=== PATIENT | female | born 1940 | race African-American/Black ===

== ENCOUNTER 2016-09-22 17:59 | Emergency (ER) | payer MEDICARE, MEDICAID ==
[~2016-09-22] VITALS: Ht 160 cm; Wt 81.0 kg
[~2016-09-22 17:59] MED LIST: AMLO2.5T45 PO; AMOX500T2 PO; CETI-259 PO; CICL15CR13 TP; CYCL30DR OP; CYM20 PO; FLUT16SP15 NS; GABA100C PO; LEVO500T89 PO; LEVO5TAB13 PO; LOSA50TA20 PO; MELA3TAB36 PO; MULT-1146 PO; NOVOLOG SUBCUT; OMEP20CA10 PO; SPIR25TA4 PO; TRESIBA SQ
[2016-09-22] MEDS ORDERED: HYDROCODONE/ACETAMINOPHEN 5/325MG TABLET PO ONE (18:45)
[2016-09-22 20:55] VITALS: BP 140/84
== END 2016-09-22 21:00 | disposition home or self-care (01) ==
LOC: ER 19:11
DX: S92.321A Displaced fracture of second metatarsal bone, right foot, initial encounter for closed fracture (principal); E78.00 Pure hypercholesterolemia, unspecified; K21.9 Gastro-esophageal reflux disease without esophagitis; E11.9 Type 2 diabetes mellitus without complications; Z79.899 Other long term (current) drug therapy; Z98.62 Peripheral vascular angioplasty status; X58.XXXA Exposure to other specified factors, initial encounter; Y93.89 Activity, other specified; Y99.8 Other external cause status; Y92.89 Other specified places as the place of occurrence of the external cause
CPT/HCPCS: 73610; 73630; 99284

== ENCOUNTER 2017-01-04 15:37 | Inpatient (IN) | payer MEDICARE, MEDICAID ==
[~2017-01-04] VITALS: Ht 160 cm; Wt 79.8 kg
[~2017-01-04 15:37] MED LIST changes: +MELA3TAB PO; -MELA3TAB36 PO
[2017-01-04 16:54] LABS: HEMATOCRIT. 35.1 % (36.0-48.0); HEMOGLOBIN. 11.6 g/dL (12.0-16.0); MEAN CORPUSCULAR HEMOGLOBIN 34.1 pg (28.0-32.0); MEAN CORPUSCULAR VOLUME 103.5 fL (81.0-99.0); PLATELET 214 x1000/uL (130-400); RED BLOOD CELL COUNT 3.39 mill/uL (4.2-5.4); RED CELL DISTRIBUTION WIDTH 15.7 % (11.6-14.6)
[2017-01-04 17:04] LABS: CARBON DIOXIDE 21 mEq/L (21-32); CHLORIDE 110 mEq/L (98-107)
[2017-01-04 17:07] LABS: TROPONIN I < 0.02 ng/mL (0.00-0.04)
[2017-01-04 17:48] LABS: PLATELET ESTIMATE NORMAL
[2017-01-04] MEDS ORDERED: AZITHROMYCIN 500 MG in DEXT 5% WATER 250 ML IV ONE (18:30)
[2017-01-04] MEDS ORDERED: CEFTRIAXONE 1 G PREMIX 50 ML IV ONE (18:30)
[2017-01-04] MEDS ORDERED: INSULIN REGULAR (HUMULIN R) 300UNITS/3ML IV ONE (18:45)
[2017-01-04] MEDS ORDERED: ACETAMINOPHEN 325MG TABLET PO PRN (18:45)
[2017-01-04] MEDS ORDERED: IBUPROFEN 600MG TABLET PO PRN (18:45)
[2017-01-04] MEDS ORDERED: DEXTROSE 50% WATER 50ML SYRINGE IV ONE (18:45)
[2017-01-04] MEDS ORDERED: ALBUTEROL (0.083%) 2.5MG/3ML NEB HHN SCH (19:00)
[2017-01-04] MEDS ORDERED: AZITHROMYCIN 500 MG in DEXT 5% WATER 250 ML IV SCH (20:15)
[2017-01-04] MEDS ORDERED: CLONIDINE 0.1MG TABLET PO PRN (21:00)
[2017-01-04] MEDS ORDERED: HYDROCODONE/ACETAMINOPHEN 5/325MG TABLET PO PRN (21:00)
[2017-01-04] MEDS ORDERED: FUROSEMIDE 40MG/4ML VIAL IVP SCH (21:15)
[2017-01-04 21:30] VITALS: BP 128/84
[2017-01-04 21:40] VITALS: BP 128/84
[2017-01-04] MEDS ORDERED: PNEUMOCOCCAL 23-VAL P-SAC VAC 0.5 ML IM ONE (22:30)
[2017-01-04] MEDS ORDERED: DEXL60CA3 PO (22:31)
[2017-01-04] MEDS ORDERED: FURO40TA5 PO (22:31)
[2017-01-04] MEDS ORDERED: FOLI-43 PO (22:31)
[2017-01-04] MEDS ORDERED: DULO30CA2 PO (22:31)
[2017-01-04] MEDS ORDERED: FEBU40TA PO (22:31)
[2017-01-04] MEDS ORDERED: HYDR200T35 PO (22:31)
[2017-01-04] MEDS ORDERED: INSASP SUBCUT (22:37)
[2017-01-04] MEDS ORDERED: ALIR75PE SQ (22:37)
[2017-01-04] MEDS ORDERED: PREG50CA PO (22:37)
[2017-01-04] MEDS ORDERED: INSU200I4 SQ (22:37)
[2017-01-04] MEDS ORDERED: AMLO2.5T45 PO (22:39)
[2017-01-04] MEDS ORDERED: LINA145C PO (22:51)
[2017-01-04] MEDS ORDERED: DEXTROSE 50% WATER 50ML SYRINGE IV PRN (23:00)
[2017-01-04 23:27] LABS: CREATINE KINASE MB FRACTION 3.5 ng/mL (0.5-3.6)
[2017-01-05] VITALS: BP 122/78
[2017-01-05 01:03] LABS: CLARITY URINE CLEAR (CLEAR); COLOR URINE YELLOW (YELLOW); GLUCOSE URINE 1+ (NEGATIVE); KETONES URINE NEGATIVE (NEGATIVE); LEUKOCYTE ESTERASE URINE NEGATIVE (NEGATIVE); NITRITE URINE NEGATIVE (NEGATIVE); OCCULT BLOOD URINE NEGATIVE (NEGATIVE); PH URINE 5.5 (4.5-8.0); PROTEIN URINE NEGATIVE (NEGATIVE); SPECIFIC GRAVITY URINE 1.014 (1.005-1.030); UROBILINOGEN URINE 0.2 E.U./dL (0.2-1.0)
[2017-01-05 04:00] VITALS: BP 122/66
[2017-01-05] MEDS: BLOOD SUGAR DIAGNOSTIC STRIP TEST SCH ×4 (06:17→22:10)
[2017-01-05] MEDS: INSULIN LISPRO 100 UNITS/ML SUBCUT SCH ×4 (06:17→22:21)
[2017-01-05 07:30] LABS: HEMATOCRIT. 34.9 % (36.0-48.0); HEMOGLOBIN. 11.4 g/dL (12.0-16.0); MEAN CORPUSCULAR HEMOGLOBIN 34.1 pg (28.0-32.0); MEAN CORPUSCULAR VOLUME 104.6 fL (81.0-99.0); PLATELET 203 x1000/uL (130-400); RED BLOOD CELL COUNT 3.34 mill/uL (4.2-5.4); RED CELL DISTRIBUTION WIDTH 15.8 % (11.6-14.6)
[2017-01-05 07:35] LABS: TROPONIN I < 0.02 ng/mL (0.00-0.04)
[2017-01-05 08:00] VITALS: BP 121/83
[2017-01-05] MEDS: AZITHROMYCIN 500 MG TABLET PO SCH (12:22)
[2017-01-05 12:25] VITALS: BP 112/70
[2017-01-05 16:00] VITALS: BP 102/69
[2017-01-05 19:22] LABS: PLATELET ESTIMATE NORMAL
[2017-01-05 20:00] VITALS: BP 109/67
[2017-01-05] MEDS: CEFTRIAXONE 1 G PREMIX 50 ML IV SCH (22:11)
[2017-01-06] VITALS: BP 112/59
[2017-01-06 04:00] VITALS: BP 105/62
[2017-01-06] MEDS: BLOOD SUGAR DIAGNOSTIC STRIP TEST SCH ×4 (06:04→20:48)
[2017-01-06] MEDS: INSULIN LISPRO 100 UNITS/ML SUBCUT SCH ×4 (06:08→20:52)
[2017-01-06 06:32] LABS: HEMATOCRIT. 35.1 % (36.0-48.0); HEMOGLOBIN. 11.8 g/dL (12.0-16.0); MEAN CORPUSCULAR HEMOGLOBIN 34.5 pg (28.0-32.0); MEAN CORPUSCULAR VOLUME 103.1 fL (81.0-99.0); MEAN PLATELET VOLUME 8.1 fl (7.4-10.4); PLATELET 210 x1000/uL (130-400); RED CELL DISTRIBUTION WIDTH 15.2 % (11.6-14.6)
[2017-01-06 08:34] VITALS: BP 110/83
[2017-01-06] MEDS: AZITHROMYCIN 500 MG TABLET PO SCH (09:26)
[2017-01-06] MEDS ORDERED: HYDROCODONE/ACETAMINOPHEN 5/325MG TABLET PO PRN (10:00)
[2017-01-06] MEDS: ALBUTEROL (0.083%) 2.5MG/3ML NEB HHN SCH ×4 (10:55→20:29)
[2017-01-06 12:00] VITALS: BP 109/77
[2017-01-06 14:27] LABS: PLATELET ESTIMATE NORMAL
[2017-01-06 16:13] VITALS: BP 128/77
[2017-01-06] MEDS ORDERED: METRONIDAZOLE 500 MG PREMIX 100 ML IV SCH (17:00)
[2017-01-06 20:00] VITALS: BP 116/68
[2017-01-06] MEDS: CEFTRIAXONE 1 G PREMIX 50 ML IV SCH (20:06)
[2017-01-06] MEDS: METRONIDAZOLE 500 MG PREMIX 100 ML IV SCH (20:48)
[2017-01-07] VITALS: BP 94/61
[2017-01-07] MEDS: ALBUTEROL (0.083%) 2.5MG/3ML NEB HHN SCH ×6 (00:42→20:00)
[2017-01-07 04:00] VITALS: BP 124/79
[2017-01-07] MEDS: METRONIDAZOLE 500 MG PREMIX 100 ML IV SCH ×3 (04:29→21:26)
[2017-01-07] MEDS: INSULIN LISPRO 100 UNITS/ML SUBCUT SCH ×4 (06:21→21:29)
[2017-01-07] MEDS: BLOOD SUGAR DIAGNOSTIC STRIP TEST SCH ×4 (06:21→21:27)
[2017-01-07 07:02] LABS: HEMATOCRIT. 34.9 % (36.0-48.0); HEMOGLOBIN. 11.5 g/dL (12.0-16.0); MEAN CORPUSCULAR HEMOGLOBIN 34.2 pg (28.0-32.0); MEAN CORPUSCULAR VOLUME 103.6 fL (81.0-99.0); PLATELET 205 x1000/uL (130-400); RED BLOOD CELL COUNT 3.37 mill/uL (4.2-5.4); RED CELL DISTRIBUTION WIDTH 15.4 % (11.6-14.6)
[2017-01-07 08:00] VITALS: BP 116/68
[2017-01-07] MEDS: AZITHROMYCIN 500 MG TABLET PO SCH (08:38)
[2017-01-07 12:13] VITALS: BP 121/83
[2017-01-07 16:19] VITALS: BP 123/81
[2017-01-07 20:00] VITALS: BP 111/85
[2017-01-07] MEDS: CEFTRIAXONE 1 G PREMIX 50 ML IV SCH (20:14)
[2017-01-07 20:52] LABS: PLATELET ESTIMATE NORMAL
[2017-01-08] VITALS: BP 139/86
[2017-01-08] MEDS: ALBUTEROL (0.083%) 2.5MG/3ML NEB HHN SCH ×4 (00:40→11:50)
[2017-01-08] MEDS: METRONIDAZOLE 500 MG PREMIX 100 ML IV SCH ×2 (03:38→12:28)
[2017-01-08 06:19] VITALS: BP_SYST 108; BP_SYST 112; BP_DIAS 36; BP_DIAS 62
[2017-01-08] MEDS: BLOOD SUGAR DIAGNOSTIC STRIP TEST SCH ×2 (06:33→12:26)
[2017-01-08] MEDS: INSULIN LISPRO 100 UNITS/ML SUBCUT SCH ×2 (06:39→12:27)
[2017-01-08 08:00] VITALS: BP 126/84
[2017-01-08] MEDS: AZITHROMYCIN 500 MG TABLET PO SCH (09:24)
[2017-01-08] MEDS ORDERED: LEVO500T2 PO (13:21)
[2017-01-08] MEDS ORDERED: ALBU6.7H INH (13:21)
[2017-01-08 14:11] VITALS: BP 135/66
== END 2017-01-08 16:09 | disposition home or self-care (01) | DRG 682 ==
LOC: ER 17:17 → 5WST 18:39 → ENRESERV 20:09
PROVIDERS: ADMIT Internal Medicine; ATTEND Internal Medicine
DX: N17.9 Acute kidney failure, unspecified (principal); J18.9 Pneumonia, unspecified organism; E87.5 Hyperkalemia; E11.22 Type 2 diabetes mellitus with diabetic chronic kidney disease; I12.9 Hypertensive chronic kidney disease with stage 1 through stage 4 chronic kidney disease, or unspecified chronic kidney disease; N18.2 Chronic kidney disease, stage 2 (mild); E66.9 Obesity, unspecified; E78.00 Pure hypercholesterolemia, unspecified; E78.5 Hyperlipidemia, unspecified; Z60.2 Problems related to living alone; K21.9 Gastro-esophageal reflux disease without esophagitis; Z79.2 Long term (current) use of antibiotics; Z79.899 Other long term (current) drug therapy; Z68.31 Body mass index [BMI] 31.0-31.9, adult
CPT/HCPCS: 36415; 71010; 76770; 80048; 80053; 80061; 81001; 82553; 82962; 83605; 83735; 83880; 84132; 84443; 84484; 85025; 85610; 87040; 87070; 90732; 93005; 93306; 93970; 94640; 94664; 96365; 96375; 97116; 97162; 97165; 99291; J0456; J0696; J1815; J1940; J3490; J7050; J7060; J7611

== ENCOUNTER 2017-01-17 16:50 | Emergency (ER) | payer MEDICARE, MEDICAID ==
[~2017-01-17] VITALS: Ht 160 cm; Wt 84.0 kg
[~2017-01-17 16:50] MED LIST changes: +ALBU6.7H INH; +ALIR75PE SQ; -AMOX500T2 PO; -CETI-259 PO; -CICL15CR13 TP; -CYCL30DR OP; -CYM20 PO; +DEXL60CA3 PO; +DULO30CA2 PO; +FEBU40TA PO; -FLUT16SP15 NS; +FOLI-43 PO; -GABA100C PO; +HYDR200T35 PO; +INSASP SUBCUT; +INSU200I4 SQ; +LEVO500T2 PO; -LEVO500T89 PO; -LEVO5TAB13 PO; +LINA145C PO; -MELA3TAB PO; -MULT-1146 PO; -NOVOLOG SUBCUT; -OMEP20CA10 PO; +PREG50CA PO; -SPIR25TA4 PO; -TRESIBA SQ
[2017-01-17 18:26] LABS: BASOPHILS % 0.5 % (0.0-2.0); CHLORIDE 115 mEq/L (98-107); EOSINOPHILS % 0.5 % (0.0-5.0); HEMATOCRIT. 30.9 % (36.0-48.0); HEMOGLOBIN. 10.3 g/dL (12.0-16.0); LYMPHOCYTES % 18.6 % (20.0-50.0); MEAN CORPUSCULAR HEMOGLOBIN 34.6 pg (28.0-32.0); MEAN CORPUSCULAR VOLUME 103.5 fL (81.0-99.0); MEAN PLATELET VOLUME 8.5 fl (7.4-10.4); MONOCYTES % 12.2 % (2.0-8.0); NEUTROPHILS % 68.2 % (40.0-76.0); PLATELET 110 x1000/uL (130-400); RED BLOOD CELL COUNT 2.99 mill/uL (4.2-5.4); RED CELL DISTRIBUTION WIDTH 15.3 % (11.6-14.6)
[2017-01-17 18:32] LABS: INR 1.1; PARTIAL THROMBOPLASTIN TIME 22.4 sec (23.4-31.0); PROTHROMBIN TIME 11.1 sec (9.4-11.6)
[2017-01-17 18:33] LABS: CARBON DIOXIDE 24 mEq/L (21-32)
[2017-01-17 18:38] LABS: TROPONIN I < 0.02 ng/mL (0.00-0.04)
[2017-01-17] MEDS ORDERED: MORPHINE SULFATE 4 MG/ML CPJ (NOT FOR IM USE) IV ONE (20:15)
[2017-01-17] MEDS ORDERED: ONDANSETRON HCL 4MG/2ML VIAL IV ONE (20:15)
[2017-01-17 20:30] VITALS: BP 141/82
== END 2017-01-17 21:05 | disposition left against medical advice (07) ==
LOC: ER 17:14 → EDBEDREQ 20:25 → ENRESERV 20:54 → CANRESERV 20:54 → ER 21:05 → SUPCPDRO 21:09 → CANBEDREQ 01-18 01:42
DX: R10.9 Unspecified abdominal pain (principal); R19.7 Diarrhea, unspecified; I10 Essential (primary) hypertension; E11.9 Type 2 diabetes mellitus without complications; K62.5 Hemorrhage of anus and rectum; E78.00 Pure hypercholesterolemia, unspecified; K21.9 Gastro-esophageal reflux disease without esophagitis; Z79.4 Long term (current) use of insulin; Z95.820 Peripheral vascular angioplasty status with implants and grafts
CPT/HCPCS: 36415; 71010; 74176; 80053; 83605; 83690; 83735; 83880; 84484; 85025; 85610; 85730; 86850; 86900; 87040; 93005; 99285

== ENCOUNTER 2017-04-18 09:21 | Emergency (ER) | payer MEDICARE, MEDICAID ==
[~2017-04-18] VITALS: Ht 160 cm; Wt 81.0 kg
[2017-04-18 10:16] LABS: HEMATOCRIT. 35.3 % (36.0-48.0); HEMOGLOBIN. 11.8 g/dL (12.0-16.0); MEAN CORPUSCULAR HEMOGLOBIN 34.3 pg (28.0-32.0); MEAN CORPUSCULAR VOLUME 102.4 fL (81.0-99.0); MEAN PLATELET VOLUME 8.4 fl (7.4-10.4); PLATELET 188 x1000/uL (130-400); RED BLOOD CELL COUNT 3.44 mill/uL (4.2-5.4); RED CELL DISTRIBUTION WIDTH 13.9 % (11.6-14.6)
[2017-04-18 10:23] LABS: INR 0.9; PROTHROMBIN TIME 9.9 sec (9.4-11.6)
[2017-04-18 10:36] LABS: CARBON DIOXIDE 28 mEq/L (21-32); CHLORIDE 108 mEq/L (98-107); TROPONIN I < 0.02 ng/mL (0.00-0.04)
[2017-04-18 11:19] LABS: PLATELET ESTIMATE NORMAL
[2017-04-18 12:00] VITALS: BP 138/80
== END 2017-04-18 12:28 | disposition home or self-care (01) ==
LOC: ER 10:13
DX: R60.1 Generalized edema (principal); I10 Essential (primary) hypertension; E78.00 Pure hypercholesterolemia, unspecified; E11.9 Type 2 diabetes mellitus without complications; R05 Cough; R06.02 Shortness of breath; M79.89 Other specified soft tissue disorders; K21.9 Gastro-esophageal reflux disease without esophagitis; Z79.4 Long term (current) use of insulin; Z95.5 Presence of coronary angioplasty implant and graft
CPT/HCPCS: 36415; 71010; 73630; 80053; 83880; 84484; 85025; 85610; 93005; 93970; 99285

== ENCOUNTER 2018-06-06 10:05 | Inpatient (IN) | payer OTHER, MEDICAID ==
[~2018-06-06] VITALS: Ht 160 cm; Wt 76.2 kg
[2018-06-06] MEDS ORDERED: ASPI-1159 PO (10:38)
[2018-06-06] MEDS ORDERED: DULO60CA63 PO (10:38)
[2018-06-06] MEDS ORDERED: PANTOPRAZOLE SODIUM 40 MG/VIAL IV ONE (12:30)
[2018-06-06 13:14] LABS: CHLORIDE 109 mEq/L (98-107)
[2018-06-06 13:16] LABS: BASOPHILS % 0.6 % (0.0-2.0); EOSINOPHILS % 1.1 % (0.0-5.0); HEMOGLOBIN. 11.9 g/dL (12.0-16.0); LYMPHOCYTES % 23.2 % (20.0-50.0); MEAN CORPUSCULAR HEMOGLOBIN 32.2 pg (28.0-32.0); MEAN CORPUSCULAR VOLUME 97.8 fL (81.0-99.0); MEAN PLATELET VOLUME 8.7 fl (7.4-10.4); NEUTROPHILS % 62.1 % (40.0-76.0); PLATELET 185 x1000/uL (130-400); RED BLOOD CELL COUNT 3.68 mill/uL (4.2-5.4); RED CELL DISTRIBUTION WIDTH 14.1 % (11.6-14.6)
[2018-06-06 13:17] LABS: INR 0.9; PARTIAL THROMBOPLASTIN TIME 21.9 sec (23.4-31.0); PROTHROMBIN TIME 9.4 sec (9.1-11.1)
[2018-06-06 16:00] VITALS: BP 144/90
[2018-06-06 16:59] VITALS: BP 144/90
[2018-06-06 20:00] VITALS: BP 131/75
[2018-06-06] MEDS ORDERED: COLC0.6C3 MT (20:24)
[2018-06-06] MEDS ORDERED: BUDE6HFA INH (20:24)
[2018-06-06] MEDS ORDERED: CHOL20004 MT (20:24)
[2018-06-06] MEDS ORDERED: CYCL30DR EACHEYE (20:24)
[2018-06-06] MEDS ORDERED: CYAN25006 SL (20:24)
[2018-06-06] MEDS ORDERED: MELA5TAB19 MT (20:24)
[2018-06-06] MEDS ORDERED: TRIA1TAB92 MT (20:24)
[2018-06-06] MEDS ORDERED: MELA5TAB21 MT (20:24)
[2018-06-06] MEDS ORDERED: DULO60CA63 MT (20:24)
[2018-06-06] MEDS ORDERED: FISH1CAP2 PO (20:24)
[2018-06-06] MEDS ORDERED: ONDA8TAB59 MT (20:24)
[2018-06-06] MEDS ORDERED: ONDANSETRON 4MG ODT PO PRN (20:30)
[2018-06-06] MEDS ORDERED: DEXTROSE 50% WATER 50ML SYRINGE IV PRN (20:30)
[2018-06-06] MEDS ORDERED: MORPHINE SULFATE 4 MG/ML CPJ (NOT FOR IM USE) IV PRN (20:30)
[2018-06-06] MEDS ORDERED: CLONIDINE 0.3MG TABLET PO PRN (20:30)
[2018-06-06] MEDS: INSULIN LISPRO 100 UNITS/ML SUBCUT SCH (21:40)
[2018-06-06] MEDS: BLOOD SUGAR DIAGNOSTIC STRIP TEST SCH (21:40)
[2018-06-06] MEDS: SODIUM CHLORIDE 0.45% 1,000 ML IV SCH (21:40)
[2018-06-06 23:51] VITALS: BP 147/69
[2018-06-07] MEDS: HYDROCODONE/APAP 7.5/325MG 1 TAB TABLET PO PRN ×3 (01:36→18:35)
[2018-06-07 04:00] VITALS: BP 129/76
[2018-06-07 06:40] LABS: MEAN CORPUSCULAR HEMOGLOBIN 32.5 pg (28.0-32.0); MEAN CORPUSCULAR VOLUME 97.5 fL (81.0-99.0); PLATELET 177 x1000/uL (130-400); RED BLOOD CELL COUNT 3.39 mill/uL (4.2-5.4); RED CELL DISTRIBUTION WIDTH 14.3 % (11.6-14.6)
[2018-06-07] MEDS: BLOOD SUGAR DIAGNOSTIC STRIP TEST SCH ×4 (06:51→21:11)
[2018-06-07] MEDS: INSULIN LISPRO 100 UNITS/ML SUBCUT SCH ×4 (07:28→21:05)
[2018-06-07 08:00] VITALS: BP 143/65
[2018-06-07] MEDS ORDERED: PANTOPRAZOLE SODIUM 40 MG/VIAL IV SCH (09:00)
[2018-06-07] MEDS ORDERED: CHOLECALCIFEROL (D3) 1000 UNIT TABLET PO SCH (09:00)
[2018-06-07 12:00] VITALS: BP 138/86
[2018-06-07] MEDS: SODIUM CHLORIDE 0.45% 1,000 ML IV SCH ×2 (13:19→23:12)
[2018-06-07 16:00] VITALS: BP 115/74
[2018-06-07 20:00] VITALS: BP 124/69
[2018-06-07] MEDS ORDERED: HEMORRHOIDAL SUPP PR SCH (21:00)
[2018-06-07] MEDS ORDERED: POLYETHYLENE GLYCOL 3350 (17GM) 1 DOSE PACK PO SCH (21:00)
[2018-06-08] VITALS: BP 118/70
[2018-06-08] MEDS: HYDROCODONE/APAP 7.5/325MG 1 TAB TABLET PO PRN (00:43)
[2018-06-08 04:00] VITALS: BP 116/72
[2018-06-08] MEDS: BLOOD SUGAR DIAGNOSTIC STRIP TEST SCH (06:59)
[2018-06-08] MEDS: INSULIN LISPRO 100 UNITS/ML SUBCUT SCH (07:50)
[2018-06-08 08:00] VITALS: BP 136/79
[2018-06-08 09:17] VITALS: BP 136/79
== END 2018-06-08 10:15 | disposition home or self-care (01) | DRG 379 ==
LOC: ER 10:05 → 6WST 13:58 → EDBEDREQ 14:08 → ENRESERV 14:49
PROVIDERS: ADMIT Internal Medicine; ATTEND Internal Medicine
DX: K92.2 Gastrointestinal hemorrhage, unspecified (principal); E11.40 Type 2 diabetes mellitus with diabetic neuropathy, unspecified; E78.00 Pure hypercholesterolemia, unspecified; M54.2 Cervicalgia; I10 Essential (primary) hypertension; I25.10 Atherosclerotic heart disease of native coronary artery without angina pectoris; K21.9 Gastro-esophageal reflux disease without esophagitis; K59.00 Constipation, unspecified; M19.90 Unspecified osteoarthritis, unspecified site; Z98.1 Arthrodesis status; Z79.4 Long term (current) use of insulin; Z79.51 Long term (current) use of inhaled steroids; Z79.899 Other long term (current) drug therapy
CPT/HCPCS: 36415; 71045; 72141; 80048; 82962; 83735; 83880; 84484; 85027; 86850; 86900; 93005; 96374; 99285; C9113; J1815; J2270

== ENCOUNTER 2019-07-21 20:43 | Emergency (ER) | payer OTHER, MEDICAID ==
[~2019-07-21] VITALS: Ht 165.1 cm; Wt 68.0 kg
[~2019-07-21 20:43] MED LIST changes: -ALBU6.7H INH; +ALBU6.7H11 INH; +BUDE6HFA INH; +CHOL20004 MT; +COLC0.6C3 MT; +CYAN25006 SL; +CYCL30DR EACHEYE; -DULO30CA2 PO; +DULO60CA64 MT; +FISH1CAP2 PO; -FOLI-43 PO; -HYDR200T35 PO; -INSASP SUBCUT; +INSLIS SUBCUT; +INSU100I28 SQ; -INSU200I4 SQ; -LINA145C PO; -LOSA50TA20 PO; +MELA5TAB19 MT; +ONDA8TAB59 MT; -PREG50CA PO
[2019-07-21] MEDS ORDERED: SODIUM CHLORIDE 0.9% 1,000 ML IV ONE ×3 (21:07→23:45)
[2019-07-21 21:52] LABS: HEMATOCRIT. 28.8 % (36.0-48.0); HEMOGLOBIN. 9.5 g/dL (12.0-16.0); MEAN CORPUSCULAR HEMOGLOBIN 32.4 pg (28.0-32.0); MEAN CORPUSCULAR VOLUME 98.8 fL (81.0-99.0); MEAN PLATELET VOLUME 10.6 fl (7.4-10.4); PLATELET 169 x1000/uL (130-400); RED BLOOD CELL COUNT 2.92 mill/uL (4.2-5.4); RED CELL DISTRIBUTION WIDTH 16.7 % (11.6-14.6)
[2019-07-21 21:56] LABS: CHLORIDE 98 mEq/L (98-107)
[2019-07-21 22:04] LABS: BETA HYDROXYBUTYRATE 0.3 mMol/L (0.0-0.3)
[2019-07-21 22:15] LABS: PLATELET ESTIMATE NORMAL
[2019-07-21 23:14] LABS: CLARITY URINE CLEAR (CLEAR); COLOR URINE YELLOW (YELLOW); KETONES URINE NEGATIVE (NEGATIVE); LEUKOCYTE ESTERASE URINE NEGATIVE (NEGATIVE); NITRITE URINE NEGATIVE (NEGATIVE); OCCULT BLOOD URINE TRACE (NEGATIVE); PROTEIN URINE NEGATIVE (NEGATIVE); SPECIFIC GRAVITY URINE 1.019 (1.005-1.030); UROBILINOGEN URINE 0.2 E.U./dL (0.2-1.0)
[2019-07-21] MEDS ORDERED: INSULIN REGULAR (HUMULIN R) 300UNITS/3ML SUBCUT ONE (23:45)
[2019-07-22 01:46] VITALS: BP 149/79
== END 2019-07-22 02:02 | disposition short-term general hospital (02) ==
LOC: ER 20:43 → CANBEDREQ 07-22 04:09
DX: E11.65 Type 2 diabetes mellitus with hyperglycemia (principal); N28.9 Disorder of kidney and ureter, unspecified; I10 Essential (primary) hypertension; Z98.890 Other specified postprocedural states; Z79.4 Long term (current) use of insulin; Z79.899 Other long term (current) drug therapy
CPT/HCPCS: 36415; 71045; 80053; 81003; 82010; 82962; 85025; 93005; 96360; 96361; 96372; 99285; J1815; J7030

== ENCOUNTER 2019-09-25 15:09 | Emergency (ER) | payer MEDICARE, MEDICAID ==
[~2019-09-25] VITALS: Ht 167.6 cm; Wt 73.0 kg
[~2019-09-25 15:09] MED LIST changes: -ALBU6.7H11 INH; -ALIR75PE SQ; +AMLO5TAB4 MT; +BLOO-1465 MT; -DEXL60CA3 PO; -FEBU40TA PO; +FLUT1AER INH; -INSU100I28 SQ; +LANC-30 TP
[2019-09-25] MEDS ORDERED: SODIUM CHLORIDE 0.9% 1,000 ML IV ONE ×2 (15:27→16:15)
[2019-09-25 15:58] LABS: HEMATOCRIT. 32.1 % (36.0-48.0); HEMOGLOBIN. 10.8 g/dL (12.0-16.0); MEAN CORPUSCULAR HEMOGLOBIN 32.8 pg (28.0-32.0); MEAN CORPUSCULAR VOLUME 97.9 fL (81.0-99.0); MEAN PLATELET VOLUME 9.6 fl (7.4-10.4); PLATELET 140 x1000/uL (130-400); RED BLOOD CELL COUNT 3.28 mill/uL (4.2-5.4); RED CELL DISTRIBUTION WIDTH 16.4 % (11.6-14.6)
[2019-09-25 15:59] LABS: CHLORIDE 100 mEq/L (98-107)
[2019-09-25 16:01] LABS: INR 0.9; PROTHROMBIN TIME 10.3 sec (9.6-11.0)
[2019-09-25] MEDS ORDERED: INSULIN REGULAR (HUMULIN R) 300UNITS/3ML SUBCUT ONE (16:15)
[2019-09-25 16:19] LABS: PLATELET ESTIMATE NORMAL
[2019-09-25] MEDS: POTASSIUM CHLORIDE 20MEQ TABLET SR PO NR (17:30)
[2019-09-25] MEDS ORDERED: ACETAMINOPHEN WITH CODEINE 300/30MG TABLET PO ONE (18:00)
[2019-09-25 20:00] VITALS: BP 178/87
== END 2019-09-25 20:45 | disposition short-term general hospital (02) ==
LOC: ER 15:09 → CANBEDREQ 20:53
DX: I13.0 Hypertensive heart and chronic kidney disease with heart failure and stage 1 through stage 4 chronic kidney disease, or unspecified chronic kidney disease (principal); E11.22 Type 2 diabetes mellitus with diabetic chronic kidney disease; E11.65 Type 2 diabetes mellitus with hyperglycemia; N18.9 Chronic kidney disease, unspecified; I50.33 Acute on chronic diastolic (congestive) heart failure; I25.10 Atherosclerotic heart disease of native coronary artery without angina pectoris; E86.0 Dehydration; E87.6 Hypokalemia; E78.00 Pure hypercholesterolemia, unspecified; S00.81XA Abrasion of other part of head, initial encounter; Z86.73 Personal history of transient ischemic attack (TIA), and cerebral infarction without residual deficits; Z79.4 Long term (current) use of insulin; W01.0XXA Fall on same level from slipping, tripping and stumbling without subsequent striking against object, initial encounter; Y93.89 Activity, other specified; Y92.012 Bathroom of single-family (private) house as the place of occurrence of the external cause
CPT/HCPCS: 36415; 70450; 71045; 80053; 82962; 84484; 85025; 85610; 93005; 96360; 96372; 99285; J1815; J7030

== ENCOUNTER 2020-05-19 14:00 | Inpatient (IN) | payer MEDICARE, MEDICAID ==
[~2020-05-19] VITALS: Ht 167.6 cm; Wt 68.9 kg
[2020-05-19] MEDS ORDERED: PROPOFOL 10MG/ML 100ML 100 ML IV STA (14:26)
[2020-05-19] MEDS ORDERED: PIPERACILLIN/TAZ 3.375G PREMIX 50 ML IV ONE (14:30)
[2020-05-19] MEDS ORDERED: LEVETIRACETAM 500MG PREMIX 100 ML IV ONE (14:30)
[2020-05-19] MEDS ORDERED: SODIUM CHLORIDE 0.9% 1000ML BAG (SEPSIS BOLUS) IV ONE (14:30)
[2020-05-19] MEDS ORDERED: DEXAMETHASONE 10 MG/ML VIAL IV ONE (14:30)
[2020-05-19] MEDS ORDERED: VANCOMYCIN 1 G PREMIX 200 ML IV ONE (14:30)
[2020-05-19] MEDS ORDERED: VECURONIUM BROMIDE 10 MG/VIAL IV ONE (14:30)
[2020-05-19] MEDS ORDERED: ETOMIDATE 2MG/ML 10ML VIAL IV ONE (14:30)
[2020-05-19 14:48] LABS: HEMATOCRIT. 44.4 % (36.0-48.0); HEMOGLOBIN. 12.9 g/dL (12.0-16.0); MEAN CORPUSCULAR VOLUME 103.3 fL (81.0-99.0); MEAN PLATELET VOLUME 11.6 fl (7.4-10.4); PLATELET 203 x1000/uL (130-400); RED BLOOD CELL COUNT 4.29 mill/uL (4.2-5.4); RED CELL DISTRIBUTION WIDTH 17.1 % (11.6-14.6)
[2020-05-19 15:21] LABS: BG BASE EXCESS -15.9 mmol/L (-2.0-2.0); BG CARBOXYHEMOGLOBIN 0.3 % (0.5-1.5); BG DEOXYHEMOGLOBIN 0.2 % (0.0-5.0); BG HCO3 ACT 11.9 mmol/L (22.0-26.0); BG METHEMOGLOBIN 0.4 % (0.0-1.5); BG OXYGEN SATURATION 99.8 % (92.0-98.5); BG OXYHEMOGLOBIN 99.1 % (94.0-97.0); BG PCO2 34.6 mmHg (35.0-45.0); BG PH 7.154 (7.350-7.450); BG PO2 531.6 mmHg (75.0-100.0); BG SAMPLE SITE RIGHT BRACHIAL; BG TOTAL HEMOGLOBIN 13.2 g/dL (12.0-18.0); BG TOTAL RESPIRATORY RATE 14 b/min; BG VENT MODE VENT - AC
[2020-05-19 15:59] LABS: PLATELET ESTIMATE NORMAL
[2020-05-19 15:59] LABS: CHLORIDE 100 mEq/L (98-107)
[2020-05-19 16:04] LABS: ETHANOL BLOOD < 10 mg/dL
[2020-05-19 16:09] LABS: CARBAMAZEPINE < 0.5 ug/mL (4-12); PHENOBARBITAL < 2.1 ug/mL (15.0-40.0); VALPROIC ACID < 3.0 ug/mL (50-100)
[2020-05-19] MEDS ORDERED: SODIUM CHLORIDE 0.9% 1,000 ML IV STA (16:15)
[2020-05-19] MEDS ORDERED: CALCIUM CHLORIDE 1GM/10ML SYR IV ONE (16:15)
[2020-05-19] MEDS ORDERED: ALBUTEROL (0.083%) 2.5MG/3ML NEB HHN ONE (16:15)
[2020-05-19] MEDS ORDERED: ONDANSETRON HCL 4MG/2ML INJ IV PRN (16:15)
[2020-05-19] MEDS ORDERED: SODIUM BICARBONATE 8.4% 1 MEQ/ML 50ML SYR IV ONE (16:15)
[2020-05-19] MEDS ORDERED: SODIUM POLYSTYRENE SULFONATE 15 G/60 ML BOT NG ONE (16:15)
[2020-05-19] MEDS ORDERED: DEXTROSE 50% WATER 50ML SYRINGE IV PRN (16:15)
[2020-05-19 16:22] LABS: INR 0.9
[2020-05-19] MEDS ORDERED: SODIUM POLYSTYRENE SULFONATE 15 G/60 ML BOT PO NR (16:26)
[2020-05-19 16:35] LABS: PARTIAL THROMBOPLASTIN TIME > 200.0 sec (23.4-31.0)
[2020-05-19] MEDS ORDERED: INSULIN REGULAR (DRIP) 100 UNITS in SODIUM CHLORIDE 0.9% 100 ML IV ONE (17:00)
[2020-05-19] MEDS ORDERED: BLOOD SUGAR DIAGNOSTIC STRIP TEST SCH (17:00)
[2020-05-19] MEDS ORDERED: INSULIN GLARGINE UD 100 UNITS/ML SYR SUBCUT NR (17:00)
[2020-05-19] MEDS ORDERED: INSULIN LISPRO 100 UNITS/ML SUBCUT SCH (18:20)
[2020-05-19 19:17] LABS: PHOSPHORUS 7.2 mg/dL (2.5-4.9)
[2020-05-19] MEDS: LEVETIRACETAM 500MG PREMIX 100 ML IV SCH ×2 (21:15→21:30)
[2020-05-19] MEDS: SODIUM CHLORIDE 0.9% 1,000 ML IV SCH (21:25)
[2020-05-19 22:55] LABS: CLARITY URINE TURBID (CLEAR); COLOR URINE YELLOW (YELLOW); KETONES URINE TRACE (NEGATIVE); LEUKOCYTE ESTERASE URINE 2+ (NEGATIVE); NITRITE URINE NEGATIVE (NEGATIVE); OCCULT BLOOD URINE 3+ (NEGATIVE); PROTEIN URINE 2+ (NEGATIVE); SPECIFIC GRAVITY URINE 1.025 (1.005-1.030); UROBILINOGEN URINE 0.2 E.U./dL (0.2-1.0)
[2020-05-19 23:38] LABS: PHOSPHORUS 6.3 mg/dL (2.5-4.9)
[2020-05-19 23:44] LABS: *AMPHETAMINES SCREEN URINE NEGATIVE (NEGATIVE); *BENZODIAZEPINES SCREEN URINE PRESUMTIVE POSITIVE (NEGATIVE); *COCAINE SCREEN URINE NEGATIVE (NEGATIVE); METHADONE URINE SCREEN NEGATIVE (NEGATIVE); OPIATES URINE SCREEN NEGATIVE (NEGATIVE)
[2020-05-19 23:45] LABS: CANNABINOID URINE SCREEN NEGATIVE (NEGATIVE); PHENCYCLIDINE URINE SCREEN NEGATIVE (NEGATIVE)
[2020-05-19 23:59] LABS: *BARBITURATES SCREEN URINE NEGATIVE (NEGATIVE)
[2020-05-20] MEDS: PIPERACILLIN/TAZOBACTAM 2.25 G in DEXTROSE 5% WATER 50 ML IV SCH ×4 (00:14→22:00)
[2020-05-20] MEDS: SODIUM CHLORIDE 0.9% 1,000 ML IV SCH ×2 (00:30→08:42)
[2020-05-20] MEDS ORDERED: PROPOFOL 10MG/ML 100ML 100 ML IV SCH (03:45)
[2020-05-20 05:07] LABS: HEMATOCRIT. 37.9 % (36.0-48.0); HEMOGLOBIN. 12.1 g/dL (12.0-16.0); MEAN CORPUSCULAR HEMOGLOBIN 29.9 pg (28.0-32.0); MEAN CORPUSCULAR VOLUME 93.6 fL (81.0-99.0); MEAN PLATELET VOLUME 10.2 fl (7.4-10.4); PLATELET 141 x1000/uL (130-400); RED BLOOD CELL COUNT 4.05 mill/uL (4.2-5.4); RED CELL DISTRIBUTION WIDTH 16.1 % (11.6-14.6)
[2020-05-20] MEDS ORDERED: INSULIN REGULAR (DRIP) 100 UNITS in SODIUM CHLORIDE 0.9% 100 ML IV PRN (06:00)
[2020-05-20] MEDS ORDERED: IPRATROPIUM/ALBUTEROL 0.5-3(2.5)MG/3ML NEB HHN PRN (07:30)
[2020-05-20] MEDS: IPRATROPIUM/ALBUTEROL 0.5-3(2.5)MG/3ML NEB HHN SCH ×3 (08:00→21:38)
[2020-05-20] MEDS ORDERED: PROPOFOL 10MG/ML 100ML 100 ML IV PRN (08:15)
[2020-05-20] MEDS: PANTOPRAZOLE SODIUM 40 MG/VIAL IV SCH (09:49)
[2020-05-20 10:17] LABS: BG BASE EXCESS -8.2 mmol/L (-2.0-2.0); BG CARBOXYHEMOGLOBIN 0.1 % (0.5-1.5); BG DEOXYHEMOGLOBIN 0.7 % (0.0-5.0); BG FRACTION INSPIRED OXYGEN 40; BG HCO3 ACT 16.8 mmol/L (22.0-26.0); BG METHEMOGLOBIN 0.3 % (0.0-1.5); BG OXYGEN SATURATION 99.3 % (92.0-98.5); BG OXYHEMOGLOBIN 98.9 % (94.0-97.0); BG PCO2 32.8 mmHg (35.0-45.0); BG PH 7.327 (7.350-7.450); BG PO2 185.2 mmHg (75.0-100.0); BG SAMPLE SITE RIGHT RADIAL; BG TOTAL HEMOGLOBIN 11.8 g/dL (12.0-18.0); BG VENT MODE VENT - AC
[2020-05-20 10:49] LABS: PLATELET ESTIMATE NORMAL
[2020-05-20] MEDS: DEXT 5%/0.45% NACL 1000ML 1,000 ML IV SCH ×2 (12:00→20:00)
[2020-05-20] MEDS ORDERED: SODIUM CHLORIDE 0.9% 10ML VIAL ONE (14:30)
[2020-05-20] MEDS: ENOXAPARIN 30MG/0.3ML SYR SUBCUT SCH (17:00)
[2020-05-20] MEDS ORDERED: POTASSIUM CHLORIDE INJ 40 MEQ in DEXT 5% WATER 250 ML IV ONE (20:00)
[2020-05-20] MEDS: LEVETIRACETAM 500MG PREMIX 100 ML IV SCH (21:00)
[2020-05-21] MEDS: IPRATROPIUM/ALBUTEROL 0.5-3(2.5)MG/3ML NEB HHN SCH ×3 (03:30→12:42)
[2020-05-21 05:06] LABS: BASOPHILS % 0.2 % (0.0-2.0); HEMATOCRIT. 41.9 % (36.0-48.0); HEMOGLOBIN. 13.2 g/dL (12.0-16.0); MEAN CORPUSCULAR HEMOGLOBIN 29.4 pg (28.0-32.0); MEAN CORPUSCULAR VOLUME 93.5 fL (81.0-99.0); MEAN PLATELET VOLUME 9.3 fl (7.4-10.4); MONOCYTES % 13.3 % (2.0-8.0); NEUTROPHILS % 78.5 % (40.0-76.0); PLATELET 97 x1000/uL (130-400); RED BLOOD CELL COUNT 4.48 mill/uL (4.2-5.4); RED CELL DISTRIBUTION WIDTH 15.9 % (11.6-14.6)
[2020-05-21] MEDS: DEXT 5%/0.45% NACL 1000ML 1,000 ML IV SCH (06:55)
[2020-05-21] MEDS: PIPERACILLIN/TAZOBACTAM 2.25 G in DEXTROSE 5% WATER 50 ML IV SCH ×3 (06:55→22:01)
[2020-05-21 09:57] LABS: BG BASE EXCESS -8.2 mmol/L (-2.0-2.0); BG CARBOXYHEMOGLOBIN 0.3 % (0.5-1.5); BG DEOXYHEMOGLOBIN 1.2 % (0.0-5.0); BG FRACTION INSPIRED OXYGEN 40; BG HCO3 ACT 16.4 mmol/L (22.0-26.0); BG METHEMOGLOBIN 0.3 % (0.0-1.5); BG OXYGEN SATURATION 98.8 % (92.0-98.5); BG OXYHEMOGLOBIN 98.2 % (94.0-97.0); BG PCO2 30.9 mmHg (35.0-45.0); BG PH 7.342 (7.350-7.450); BG PO2 148.2 mmHg (75.0-100.0); BG SAMPLE SITE RIGHT RADIAL; BG TOTAL HEMOGLOBIN 11.6 g/dL (12.0-18.0); BG TOTAL RESPIRATORY RATE 16 b/min; BG VENT MODE VENT - AC
[2020-05-21] MEDS: LEVETIRACETAM 500MG PREMIX 100 ML IV SCH ×2 (10:16→21:29)
[2020-05-21] MEDS: PANTOPRAZOLE SODIUM 40 MG/VIAL IV SCH (10:17)
[2020-05-21] MEDS ORDERED: INSULIN GLARGINE UD 100 UNITS/ML SYR SUBCUT NR (11:00)
[2020-05-21] MEDS: BLOOD SUGAR DIAGNOSTIC STRIP TEST SCH ×3 (11:04→21:07)
[2020-05-21] MEDS: INSULIN LISPRO 100 UNITS/ML SUBCUT SCH ×3 (11:18→21:00)
[2020-05-21 14:24] LABS: BG BASE EXCESS -8.6 mmol/L (-2.0-2.0); BG CARBOXYHEMOGLOBIN 0.3 % (0.5-1.5); BG DEOXYHEMOGLOBIN 1.3 % (0.0-5.0); BG HCO3 ACT 15.3 mmol/L (22.0-26.0); BG METHEMOGLOBIN 0.3 % (0.0-1.5); BG OXYGEN SATURATION 98.7 % (92.0-98.5); BG OXYHEMOGLOBIN 98.1 % (94.0-97.0); BG PCO2 27.8 mmHg (35.0-45.0); BG PH 7.359 (7.350-7.450); BG PO2 145.1 mmHg (75.0-100.0); BG SAMPLE SITE RIGHT RADIAL; BG TOTAL HEMOGLOBIN 13.3 g/dL (12.0-18.0); BG TOTAL RESPIRATORY RATE 18 b/min; BG VENT MODE VENT - CPAP
[2020-05-21] MEDS: ENOXAPARIN 30MG/0.3ML SYR SUBCUT SCH (14:50)
[2020-05-21] MEDS ORDERED: INSULIN GLARGINE UD 100 UNITS/ML SYR SUBCUT SCH (22:00)
[2020-05-22] VITALS (7 sets, daily range): BP systolic 103–167; BP diastolic 67–97
[2020-05-22] MEDS: DEXTROSE 50% WATER 50ML SYRINGE IV PRN ×2 (06:43→11:24)
[2020-05-22] MEDS: PIPERACILLIN/TAZOBACTAM 2.25 G in DEXTROSE 5% WATER 50 ML IV SCH ×3 (06:43→22:58)
[2020-05-22] MEDS: BLOOD SUGAR DIAGNOSTIC STRIP TEST SCH ×4 (06:43→20:58)
[2020-05-22] MEDS: INSULIN LISPRO 100 UNITS/ML SUBCUT SCH ×4 (06:43→20:58)
[2020-05-22 08:06] LABS: BASOPHILS % 0.1 % (0.0-2.0); EOSINOPHILS % 0.3 % (0.0-5.0); HEMATOCRIT. 35.3 % (36.0-48.0); HEMOGLOBIN. 11.4 g/dL (12.0-16.0); LYMPHOCYTES % 14.9 % (20.0-50.0); MEAN CORPUSCULAR HEMOGLOBIN 29.9 pg (28.0-32.0); MEAN CORPUSCULAR VOLUME 92.2 fL (81.0-99.0); MEAN PLATELET VOLUME 10.7 fl (7.4-10.4); MONOCYTES % 8.8 % (2.0-8.0); NEUTROPHILS % 75.9 % (40.0-76.0); PLATELET 118 x1000/uL (130-400); RED BLOOD CELL COUNT 3.83 mill/uL (4.2-5.4); RED CELL DISTRIBUTION WIDTH 15.6 % (11.6-14.6)
[2020-05-22] MEDS: LEVETIRACETAM 500MG PREMIX 100 ML IV SCH ×2 (08:09→22:58)
[2020-05-22] MEDS: PANTOPRAZOLE SODIUM 40 MG/VIAL IV SCH (08:09)
[2020-05-22] MEDS ORDERED: HYDRALAZINE 20MG/ML VIAL IV PRN (09:00)
[2020-05-22] MEDS: HYDRALAZINE 20MG/ML VIAL IV PRN (09:13)
[2020-05-22] MEDS: DEXTROSE 5% WATER 1,000 ML IV SCH (11:46)
[2020-05-22] MEDS ORDERED: KCL 20MEQ/100ML PREMIX 100 ML IV ONE (12:30)
[2020-05-22] MEDS ORDERED: POTASSIUM CHLORIDE INJ 40 MEQ in DEXT 5% WATER 250 ML IV NR (14:00)
[2020-05-22] MEDS: ENOXAPARIN 30MG/0.3ML SYR SUBCUT SCH (15:30)
[2020-05-23] VITALS: BP 133/78
[2020-05-23] MEDS: DEXTROSE 5% WATER 1,000 ML IV SCH ×2 (01:05→14:07)
[2020-05-23] MEDS: BLOOD SUGAR DIAGNOSTIC STRIP TEST SCH ×4 (06:09→21:12)
[2020-05-23] MEDS: PIPERACILLIN/TAZOBACTAM 2.25 G in DEXTROSE 5% WATER 50 ML IV SCH ×3 (06:09→21:36)
[2020-05-23 08:00] VITALS: BP 140/84
[2020-05-23] MEDS: LEVETIRACETAM 500MG PREMIX 100 ML IV SCH ×2 (08:32→21:36)
[2020-05-23] MEDS: PANTOPRAZOLE SODIUM 40 MG/VIAL IV SCH (08:32)
[2020-05-23] MEDS: INSULIN LISPRO 100 UNITS/ML SUBCUT SCH ×4 (08:33→21:24)
[2020-05-23 12:00] VITALS: BP 122/96
[2020-05-23 16:00] VITALS: BP 122/76
[2020-05-23] MEDS: ENOXAPARIN 30MG/0.3ML SYR SUBCUT SCH (16:42)
[2020-05-23 20:00] VITALS: BP 141/72
[2020-05-23 23:42] LABS: BASOPHILS % 0.3 % (0.0-2.0); EOSINOPHILS % 0.7 % (0.0-5.0); HEMATOCRIT. 40.3 % (36.0-48.0); HEMOGLOBIN. 12.9 g/dL (12.0-16.0); MEAN CORPUSCULAR HEMOGLOBIN 29.6 pg (28.0-32.0); MEAN CORPUSCULAR VOLUME 92.5 fL (81.0-99.0); MEAN PLATELET VOLUME 8.9 fl (7.4-10.4); MONOCYTES % 9.3 % (2.0-8.0); NEUTROPHILS % 71.7 % (40.0-76.0); PLATELET 95 x1000/uL (130-400); RED BLOOD CELL COUNT 4.36 mill/uL (4.2-5.4); RED CELL DISTRIBUTION WIDTH 15.4 % (11.6-14.6)
[2020-05-24] VITALS: BP 143/85
[2020-05-24 00:21] LABS: CHLORIDE 116 mEq/L (98-107)
[2020-05-24 04:00] VITALS: BP 143/77
[2020-05-24] MEDS: PIPERACILLIN/TAZOBACTAM 2.25 G in DEXTROSE 5% WATER 50 ML IV SCH (05:53)
[2020-05-24] MEDS: DEXTROSE 5% WATER 1,000 ML IV SCH ×2 (05:55→21:46)
[2020-05-24] MEDS: BLOOD SUGAR DIAGNOSTIC STRIP TEST SCH ×3 (06:10→21:00)
[2020-05-24 08:00] VITALS: BP 137/31
[2020-05-24] MEDS: PANTOPRAZOLE SODIUM 40 MG/VIAL IV SCH (10:18)
[2020-05-24] MEDS: LEVETIRACETAM 500MG PREMIX 100 ML IV SCH ×2 (10:19→21:46)
[2020-05-24 12:00] VITALS: BP 137/71
[2020-05-24] MEDS: INSULIN LISPRO 100 UNITS/ML SUBCUT SCH ×4 (13:37→22:35)
[2020-05-24 16:00] VITALS: BP 112/61
[2020-05-24] MEDS: ENOXAPARIN 30MG/0.3ML SYR SUBCUT SCH (16:00)
[2020-05-24 20:00] VITALS: BP 145/76
[2020-05-24] MEDS ORDERED: INSULIN GLARGINE UD 100 UNITS/ML SYR SUBCUT SCH (22:00)
[2020-05-25] VITALS: BP 143/72
[2020-05-25 04:00] VITALS: BP 146/83
[2020-05-25] MEDS: BLOOD SUGAR DIAGNOSTIC STRIP TEST SCH ×4 (06:11→21:32)
[2020-05-25] MEDS: DEXTROSE 5% WATER 1,000 ML IV SCH ×2 (06:12→21:32)
[2020-05-25] MEDS: INSULIN LISPRO 100 UNITS/ML SUBCUT SCH ×4 (06:17→22:21)
[2020-05-25 08:00] VITALS: BP 134/83
[2020-05-25] MEDS: LEVETIRACETAM 500MG PREMIX 100 ML IV SCH ×2 (09:31→21:32)
[2020-05-25] MEDS: PANTOPRAZOLE SODIUM 40 MG/VIAL IV SCH (09:31)
[2020-05-25 12:00] VITALS: BP 131/80
[2020-05-25 16:00] VITALS: BP 147/82
[2020-05-25] MEDS: ENOXAPARIN 30MG/0.3ML SYR SUBCUT SCH (16:00)
[2020-05-25 20:00] VITALS: BP 138/90
[2020-05-25] MEDS: INSULIN GLARGINE UD 100 UNITS/ML SYR SUBCUT SCH (23:35)
[2020-05-26] VITALS: BP 160/98
[2020-05-26 04:00] VITALS: BP 160/86
[2020-05-26] MEDS: BLOOD SUGAR DIAGNOSTIC STRIP TEST SCH ×4 (06:43→21:00)
[2020-05-26] MEDS: INSULIN LISPRO 100 UNITS/ML SUBCUT SCH ×4 (06:50→23:37)
[2020-05-26 08:00] VITALS: BP 132/68
[2020-05-26] MEDS: LEVETIRACETAM 500MG PREMIX 100 ML IV SCH ×2 (09:05→22:38)
[2020-05-26] MEDS: PANTOPRAZOLE SODIUM 40 MG/VIAL IV SCH (09:05)
[2020-05-26] MEDS: DEXTROSE 5% WATER 1,000 ML IV SCH ×2 (09:05→22:40)
[2020-05-26 12:00] VITALS: BP 146/82
[2020-05-26 16:00] VITALS: BP 130/81
[2020-05-26] MEDS: ENOXAPARIN 30MG/0.3ML SYR SUBCUT SCH (16:00)
[2020-05-26 20:00] VITALS: BP 155/84
[2020-05-26] MEDS: AMLODIPINE 2.5MG TABLET PO SCH (22:38)
[2020-05-26] MEDS: INSULIN GLARGINE UD 100 UNITS/ML SYR SUBCUT SCH (23:38)
[2020-05-27] VITALS: BP 146/84
[2020-05-27 04:00] VITALS: BP 117/84
[2020-05-27] MEDS: INSULIN LISPRO 100 UNITS/ML SUBCUT SCH ×4 (06:22→22:23)
[2020-05-27] MEDS: BLOOD SUGAR DIAGNOSTIC STRIP TEST SCH ×4 (06:22→21:55)
[2020-05-27 06:54] LABS: CHLORIDE 113 mEq/L (98-107)
[2020-05-27 07:15] LABS: HEMATOCRIT 33.4 % (36.0-48.0); HEMOGLOBIN 11.1 g/dL (12.0-16.0); MEAN CORPUSCULAR HEMOGLOBIN 30.8 pg (28.0-32.0); MEAN CORPUSCULAR VOLUME 92.9 fL (81.0-99.0); PLATELET 208 x1000/uL (130-400); RED CELL DISTRIBUTION WIDTH 15.1 % (11.6-14.6)
[2020-05-27 08:00] VITALS: BP 134/74
[2020-05-27] MEDS: LEVETIRACETAM 500MG PREMIX 100 ML IV SCH ×2 (08:07→21:55)
[2020-05-27] MEDS: PANTOPRAZOLE SODIUM 40 MG/VIAL IV SCH (08:23)
[2020-05-27] MEDS: AMLODIPINE 2.5MG TABLET PO SCH (08:23)
[2020-05-27] MEDS ORDERED: POTASSIUM CHLORIDE 20MEQ/PACKET PO ONE (11:30)
[2020-05-27] MEDS: DEXTROSE 5% WATER 1,000 ML IV SCH (11:37)
[2020-05-27 12:00] VITALS: BP 128/70
[2020-05-27] MEDS ORDERED: POTASSIUM CHLORIDE INJ 40 MEQ in DEXT 5% WATER 250 ML IV SCH (13:00)
[2020-05-27] MEDS: ENOXAPARIN 40MG/0.4ML SYR SUBCUT SCH (13:26)
[2020-05-27 16:00] VITALS: BP 144/85
[2020-05-27 20:00] VITALS: BP 129/84
[2020-05-28] VITALS: BP 165/89
[2020-05-28] MEDS: INSULIN GLARGINE UD 100 UNITS/ML SYR SUBCUT SCH ×2 (00:28→21:34)
[2020-05-28] MEDS: DEXTROSE 5% WATER 1,000 ML IV SCH ×2 (01:05→14:25)
[2020-05-28 04:00] VITALS: BP 179/92
[2020-05-28] MEDS: BLOOD SUGAR DIAGNOSTIC STRIP TEST SCH ×4 (06:39→21:01)
[2020-05-28] MEDS: INSULIN LISPRO 100 UNITS/ML SUBCUT SCH ×4 (06:39→21:33)
[2020-05-28 07:39] LABS: BASOPHILS % 0.3 % (0.0-2.0); EOSINOPHILS % 0.7 % (0.0-5.0); HEMATOCRIT. 31.8 % (36.0-48.0); HEMOGLOBIN. 10.7 g/dL (12.0-16.0); LYMPHOCYTES % 22.6 % (20.0-50.0); MEAN CORPUSCULAR HEMOGLOBIN 30.6 pg (28.0-32.0); MEAN CORPUSCULAR VOLUME 91.3 fL (81.0-99.0); MEAN PLATELET VOLUME 7.3 fl (7.4-10.4); MONOCYTES % 12.9 % (2.0-8.0); NEUTROPHILS % 63.5 % (40.0-76.0); PLATELET 247 x1000/uL (130-400); RED BLOOD CELL COUNT 3.48 mill/uL (4.2-5.4); RED CELL DISTRIBUTION WIDTH 15.4 % (11.6-14.6)
[2020-05-28 07:51] LABS: CHLORIDE 110 mEq/L (98-107)
[2020-05-28 08:00] VITALS: BP 176/98
[2020-05-28] MEDS: LEVETIRACETAM 500MG PREMIX 100 ML IV SCH ×2 (08:29→21:32)
[2020-05-28] MEDS: ENOXAPARIN 40MG/0.4ML SYR SUBCUT SCH (08:29)
[2020-05-28] MEDS: PANTOPRAZOLE SODIUM 40 MG/VIAL IV SCH (08:29)
[2020-05-28] MEDS: AMLODIPINE 2.5MG TABLET PO SCH (08:31)
[2020-05-28] MEDS: HYDRALAZINE 20MG/ML VIAL IV PRN (11:46)
[2020-05-28 12:00] VITALS: BP 171/63
[2020-05-28 16:00] VITALS: BP 131/63
[2020-05-28 20:00] VITALS: BP 115/70
[2020-05-28] MEDS: ACETAMINOPHEN 325MG TABLET PO PRN (22:57)
[2020-05-29] VITALS: BP 110/86
[2020-05-29] MEDS: DEXTROSE 5% WATER 1,000 ML IV SCH ×2 (03:37→21:46)
[2020-05-29 04:00] VITALS: BP 116/72
[2020-05-29] MEDS: ACETAMINOPHEN 325MG TABLET PO PRN (06:41)
[2020-05-29] MEDS: BLOOD SUGAR DIAGNOSTIC STRIP TEST SCH ×4 (06:45→21:45)
[2020-05-29] MEDS: INSULIN LISPRO 100 UNITS/ML SUBCUT SCH ×4 (07:10→21:00)
[2020-05-29 07:25] LABS: BASOPHILS % 0.5 % (0.0-2.0); EOSINOPHILS % 0.7 % (0.0-5.0); HEMATOCRIT. 32.7 % (36.0-48.0); HEMOGLOBIN. 10.9 g/dL (12.0-16.0); LYMPHOCYTES % 24.4 % (20.0-50.0); MEAN CORPUSCULAR HEMOGLOBIN 30.7 pg (28.0-32.0); MEAN CORPUSCULAR VOLUME 92.3 fL (81.0-99.0); MEAN PLATELET VOLUME 7.8 fl (7.4-10.4); MONOCYTES % 11.9 % (2.0-8.0); NEUTROPHILS % 62.5 % (40.0-76.0); PLATELET 299 x1000/uL (130-400); RED BLOOD CELL COUNT 3.54 mill/uL (4.2-5.4); RED CELL DISTRIBUTION WIDTH 15.1 % (11.6-14.6)
[2020-05-29 08:00] VITALS: BP 135/69
[2020-05-29 08:34] LABS: CHLORIDE 109 mEq/L (98-107)
[2020-05-29] MEDS: AMLODIPINE 2.5MG TABLET PO SCH (08:49)
[2020-05-29] MEDS: PANTOPRAZOLE SODIUM 40 MG/VIAL IV SCH (08:49)
[2020-05-29] MEDS: ENOXAPARIN 40MG/0.4ML SYR SUBCUT SCH (08:49)
[2020-05-29] MEDS: LEVETIRACETAM 500MG PREMIX 100 ML IV SCH ×2 (08:49→21:46)
[2020-05-29 12:00] VITALS: BP 176/68
[2020-05-29] MEDS ORDERED: POTASSIUM CHLORIDE 20MEQ TABLET SR PO NR (14:15)
[2020-05-29 16:00] VITALS: BP 125/72
[2020-05-29 20:00] VITALS: BP 147/80
[2020-05-30] VITALS: BP 139/72
[2020-05-30] MEDS: ACETAMINOPHEN 325MG TABLET PO PRN (00:26)
[2020-05-30 04:00] VITALS: BP 167/42
[2020-05-30] MEDS: BLOOD SUGAR DIAGNOSTIC STRIP TEST SCH ×4 (06:43→21:00)
[2020-05-30] MEDS: INSULIN LISPRO 100 UNITS/ML SUBCUT SCH ×4 (07:10→22:54)
[2020-05-30 08:00] VITALS: BP 126/72
[2020-05-30] MEDS: ENOXAPARIN 40MG/0.4ML SYR SUBCUT SCH (08:32)
[2020-05-30] MEDS: AMLODIPINE 2.5MG TABLET PO SCH (08:33)
[2020-05-30] MEDS: PANTOPRAZOLE SODIUM 40 MG/VIAL IV SCH (08:33)
[2020-05-30] MEDS: LEVETIRACETAM 500MG PREMIX 100 ML IV SCH ×2 (08:33→20:42)
[2020-05-30 12:00] VITALS: BP 131/75
[2020-05-30 16:00] VITALS: BP 131/67
[2020-05-30 20:00] VITALS: BP 159/75
[2020-05-30 20:36] LABS: BASOPHILS % 0.3 % (0.0-2.0); EOSINOPHILS % 0.5 % (0.0-5.0); HEMATOCRIT. 33.1 % (36.0-48.0); LYMPHOCYTES % 22.8 % (20.0-50.0); MEAN CORPUSCULAR HEMOGLOBIN 30.6 pg (28.0-32.0); MEAN CORPUSCULAR VOLUME 92.3 fL (81.0-99.0); MEAN PLATELET VOLUME 7.6 fl (7.4-10.4); MONOCYTES % 8.9 % (2.0-8.0); NEUTROPHILS % 67.5 % (40.0-76.0); PLATELET 313 x1000/uL (130-400); RED BLOOD CELL COUNT 3.59 mill/uL (4.2-5.4); RED CELL DISTRIBUTION WIDTH 15.1 % (11.6-14.6)
[2020-05-30 20:43] LABS: CHLORIDE 107 mEq/L (98-107)
[2020-05-31] VITALS: BP 140/76
[2020-05-31 04:00] VITALS: BP 144/75
[2020-05-31] MEDS: BLOOD SUGAR DIAGNOSTIC STRIP TEST SCH ×4 (06:45→21:00)
[2020-05-31] MEDS: INSULIN LISPRO 100 UNITS/ML SUBCUT SCH ×4 (06:47→22:54)
[2020-05-31 08:10] VITALS: BP 153/81
[2020-05-31] MEDS: LEVETIRACETAM 500MG PREMIX 100 ML IV SCH ×2 (09:37→22:20)
[2020-05-31] MEDS: PANTOPRAZOLE SODIUM 40 MG/VIAL IV SCH (09:37)
[2020-05-31] MEDS: AMLODIPINE 2.5MG TABLET PO SCH (09:38)
[2020-05-31] MEDS: ENOXAPARIN 40MG/0.4ML SYR SUBCUT SCH (09:38)
[2020-05-31 12:10] VITALS: BP 133/75
[2020-05-31 20:00] VITALS: BP 145/70
[2020-06-01] VITALS: BP 139/77
[2020-06-01 04:00] VITALS: BP 160/89
[2020-06-01] MEDS: BLOOD SUGAR DIAGNOSTIC STRIP TEST SCH ×3 (06:16→21:00)
[2020-06-01 07:01] VITALS: BP 159/99
[2020-06-01] MEDS: PANTOPRAZOLE SODIUM 40 MG/VIAL IV SCH (08:47)
[2020-06-01] MEDS: AMLODIPINE 2.5MG TABLET PO SCH (08:47)
[2020-06-01] MEDS: ENOXAPARIN 40MG/0.4ML SYR SUBCUT SCH (08:47)
[2020-06-01] MEDS: LEVETIRACETAM 500MG PREMIX 100 ML IV SCH ×2 (08:47→21:05)
[2020-06-01] MEDS: INSULIN LISPRO 100 UNITS/ML SUBCUT SCH ×3 (08:55→21:46)
[2020-06-01 13:30] VITALS: BP 160/90
[2020-06-01] MEDS: ACETAMINOPHEN 325MG TABLET PO PRN (14:57)
[2020-06-01 16:00] VITALS: BP 123/92
[2020-06-01 20:00] VITALS: BP 165/90
[2020-06-01] MEDS: HYDRALAZINE 10 MG in SODIUM CHLORIDE 0.9% 49.5 ML IV PRN (21:28)
[2020-06-02] VITALS: BP 139/79
[2020-06-02 04:00] VITALS: BP 148/91
[2020-06-02] MEDS: BLOOD SUGAR DIAGNOSTIC STRIP TEST SCH ×4 (06:33→20:27)
[2020-06-02] MEDS: ACETAMINOPHEN 325MG TABLET PO PRN (06:36)
[2020-06-02 08:00] VITALS: BP 120/73
[2020-06-02] MEDS: PANTOPRAZOLE SODIUM 40 MG/VIAL IV SCH (08:47)
[2020-06-02] MEDS: LEVETIRACETAM 500MG PREMIX 100 ML IV SCH ×2 (08:47→20:21)
[2020-06-02] MEDS: AMLODIPINE 2.5MG TABLET PO SCH (08:48)
[2020-06-02] MEDS: ENOXAPARIN 40MG/0.4ML SYR SUBCUT SCH (08:48)
[2020-06-02] MEDS: INSULIN LISPRO 100 UNITS/ML SUBCUT SCH ×4 (08:57→20:51)
[2020-06-02 12:00] VITALS: BP 134/80
[2020-06-02 16:00] VITALS: BP 109/57
[2020-06-02] MEDS ORDERED: LACTULOSE 20G/30ML UDC PO NR (17:00)
[2020-06-02 20:00] VITALS: BP 135/67
[2020-06-03] VITALS: BP 131/66
[2020-06-03] MEDS: BLOOD SUGAR DIAGNOSTIC STRIP TEST SCH ×4 (06:45→20:29)
[2020-06-03 06:53] VITALS: BP 109/66
[2020-06-03 08:00] VITALS: BP 122/69
[2020-06-03] MEDS: PANTOPRAZOLE SODIUM 40 MG/VIAL IV SCH (08:47)
[2020-06-03] MEDS: LEVETIRACETAM 500MG PREMIX 100 ML IV SCH ×2 (08:48→20:24)
[2020-06-03] MEDS: AMLODIPINE 2.5MG TABLET PO SCH (08:48)
[2020-06-03] MEDS: ENOXAPARIN 40MG/0.4ML SYR SUBCUT SCH (08:48)
[2020-06-03] MEDS: INSULIN LISPRO 100 UNITS/ML SUBCUT SCH ×4 (09:31→20:43)
[2020-06-03 12:00] VITALS: BP 151/74
[2020-06-03 16:00] VITALS: BP 131/72
[2020-06-03] MEDS: ACETAMINOPHEN 325MG TABLET PO PRN (22:50)
[2020-06-04] VITALS (7 sets, daily range): BP systolic 136–158; BP diastolic 60–85
[2020-06-04] MEDS: BLOOD SUGAR DIAGNOSTIC STRIP TEST SCH ×4 (06:20→21:20)
[2020-06-04] MEDS: FAMOTIDINE 20MG TABLET PO SCH (06:20)
[2020-06-04] MEDS: AMLODIPINE 2.5MG TABLET PO SCH (08:49)
[2020-06-04] MEDS: ENOXAPARIN 40MG/0.4ML SYR SUBCUT SCH (08:50)
[2020-06-04] MEDS: LEVETIRACETAM 500MG PREMIX 100 ML IV SCH ×2 (08:50→21:20)
[2020-06-04] MEDS: INSULIN LISPRO 100 UNITS/ML SUBCUT SCH ×4 (09:06→21:00)
[2020-06-04] MEDS: INSULIN GLARGINE UD 100 UNITS/ML SYR SUBCUT SCH (22:48)
[2020-06-05] VITALS: BP_SYST 144; BP_SYST 155; BP_DIAS 67; BP_DIAS 94
[2020-06-05 04:00] VITALS: BP 144/80
[2020-06-05] MEDS: BLOOD SUGAR DIAGNOSTIC STRIP TEST SCH ×4 (06:53→21:28)
[2020-06-05] MEDS: INSULIN LISPRO 100 UNITS/ML SUBCUT SCH ×4 (07:50→21:28)
[2020-06-05 08:00] VITALS: BP 160/79
[2020-06-05] MEDS: ENOXAPARIN 40MG/0.4ML SYR SUBCUT SCH (08:19)
[2020-06-05] MEDS: AMLODIPINE 2.5MG TABLET PO SCH (08:19)
[2020-06-05] MEDS: LEVETIRACETAM 500MG PREMIX 100 ML IV SCH ×2 (08:19→21:17)
[2020-06-05] MEDS: FAMOTIDINE 20MG TABLET PO SCH (08:20)
[2020-06-05] MEDS: INSULIN GLARGINE UD 100 UNITS/ML SYR SUBCUT SCH ×2 (10:36→21:28)
[2020-06-05 12:00] VITALS: BP 142/75
[2020-06-05 16:00] VITALS: BP 148/70
[2020-06-05 20:00] VITALS: BP 125/75
[2020-06-06] VITALS: BP 143/70
[2020-06-06] MEDS: ACETAMINOPHEN 325MG TABLET PO PRN ×2 (00:34→14:00)
[2020-06-06 04:00] VITALS: BP 120/84
[2020-06-06] MEDS: FAMOTIDINE 20MG TABLET PO SCH (06:26)
[2020-06-06] MEDS: BLOOD SUGAR DIAGNOSTIC STRIP TEST SCH ×3 (06:26→21:20)
[2020-06-06] MEDS: INSULIN LISPRO 100 UNITS/ML SUBCUT SCH ×3 (07:50→22:06)
[2020-06-06 08:00] VITALS: BP 148/88
[2020-06-06] MEDS: LEVETIRACETAM 500MG PREMIX 100 ML IV SCH ×2 (10:34→21:20)
[2020-06-06] MEDS: INSULIN GLARGINE UD 100 UNITS/ML SYR SUBCUT SCH ×2 (10:38→22:54)
[2020-06-06] MEDS: ENOXAPARIN 40MG/0.4ML SYR SUBCUT SCH (10:40)
[2020-06-06] MEDS: AMLODIPINE 2.5MG TABLET PO SCH (10:43)
[2020-06-06 12:00] VITALS: BP 161/80
[2020-06-06 16:56] VITALS: BP 127/67
[2020-06-06 20:00] VITALS: BP 131/73
[2020-06-07] VITALS: BP 141/79
[2020-06-07 04:00] VITALS: BP 164/93
[2020-06-07] MEDS: HYDRALAZINE 10 MG in SODIUM CHLORIDE 0.9% 49.5 ML IV PRN (05:50)
[2020-06-07 06:32] LABS: HEMATOCRIT. 32.1 % (36.0-48.0); HEMOGLOBIN. 10.7 g/dL (12.0-16.0); MEAN CORPUSCULAR VOLUME 92.9 fL (81.0-99.0); MEAN PLATELET VOLUME 7.7 fl (7.4-10.4); PLATELET 311 x1000/uL (130-400); RED BLOOD CELL COUNT 3.46 mill/uL (4.2-5.4); RED CELL DISTRIBUTION WIDTH 15.4 % (11.6-14.6)
[2020-06-07] MEDS: BLOOD SUGAR DIAGNOSTIC STRIP TEST SCH ×4 (06:57→21:08)
[2020-06-07] MEDS: FAMOTIDINE 20MG TABLET PO SCH (06:57)
[2020-06-07] MEDS: INSULIN LISPRO 100 UNITS/ML SUBCUT SCH ×4 (07:50→21:24)
[2020-06-07 08:00] VITALS: BP 150/90
[2020-06-07] MEDS: LEVETIRACETAM 500MG PREMIX 100 ML IV SCH ×2 (09:29→21:25)
[2020-06-07] MEDS: AMLODIPINE 2.5MG TABLET PO SCH (09:29)
[2020-06-07] MEDS: ENOXAPARIN 40MG/0.4ML SYR SUBCUT SCH (09:29)
[2020-06-07] MEDS: INSULIN GLARGINE UD 100 UNITS/ML SYR SUBCUT SCH ×2 (09:31→21:24)
[2020-06-07 12:00] VITALS: BP 155/85
[2020-06-07 16:00] VITALS: BP 136/60
[2020-06-07 17:03] LABS: PLATELET ESTIMATE NORMAL
[2020-06-07 20:00] VITALS: BP 137/74
[2020-06-08] VITALS: BP 141/66
[2020-06-08 04:00] VITALS: BP 133/71
[2020-06-08] MEDS: FAMOTIDINE 20MG TABLET PO SCH (07:08)
[2020-06-08] MEDS: INSULIN LISPRO 100 UNITS/ML SUBCUT SCH ×4 (07:22→21:16)
[2020-06-08] MEDS: BLOOD SUGAR DIAGNOSTIC STRIP TEST SCH ×4 (07:22→20:49)
[2020-06-08 08:00] VITALS: BP 155/87
[2020-06-08] MEDS: INSULIN GLARGINE UD 100 UNITS/ML SYR SUBCUT SCH ×3 (08:30→21:15)
[2020-06-08] MEDS: LEVETIRACETAM 500MG PREMIX 100 ML IV SCH ×2 (09:27→21:16)
[2020-06-08] MEDS: ENOXAPARIN 40MG/0.4ML SYR SUBCUT SCH (09:28)
[2020-06-08] MEDS: AMLODIPINE 10MG TABLET PO SCH (09:28)
[2020-06-08 12:00] VITALS: BP 129/68
[2020-06-08 16:00] VITALS: BP 130/70
[2020-06-08 20:00] VITALS: BP_SYST 156; BP_SYST 176; BP_DIAS 76; BP_DIAS 89
[2020-06-09] VITALS: BP 131/72
[2020-06-09 04:00] VITALS: BP 144/78
[2020-06-09] MEDS: FAMOTIDINE 20MG TABLET PO SCH (06:22)
[2020-06-09] MEDS: BLOOD SUGAR DIAGNOSTIC STRIP TEST SCH ×4 (06:26→21:00)
[2020-06-09] MEDS: INSULIN LISPRO 100 UNITS/ML SUBCUT SCH ×4 (06:34→21:00)
[2020-06-09 07:58] VITALS: BP 140/80
[2020-06-09] MEDS: LEVETIRACETAM 500MG PREMIX 100 ML IV SCH ×2 (09:04→21:27)
[2020-06-09] MEDS: AMLODIPINE 10MG TABLET PO SCH (09:05)
[2020-06-09] MEDS: ENOXAPARIN 40MG/0.4ML SYR SUBCUT SCH (09:05)
[2020-06-09] MEDS: INSULIN GLARGINE UD 100 UNITS/ML SYR SUBCUT SCH ×2 (09:06→21:34)
[2020-06-09 12:00] VITALS: BP 114/70
[2020-06-09 16:00] VITALS: BP 104/56
[2020-06-09 20:00] VITALS: BP 144/69
[2020-06-10] VITALS: BP 138/66
[2020-06-10 04:00] VITALS: BP 112/63
[2020-06-10] MEDS: FAMOTIDINE 20MG TABLET PO SCH (06:39)
[2020-06-10] MEDS: BLOOD SUGAR DIAGNOSTIC STRIP TEST SCH ×4 (06:39→21:00)
[2020-06-10] MEDS: INSULIN LISPRO 100 UNITS/ML SUBCUT SCH ×4 (07:50→22:21)
[2020-06-10 08:00] VITALS: BP 137/79
[2020-06-10] MEDS: LEVETIRACETAM 500MG PREMIX 100 ML IV SCH ×2 (09:22→20:32)
[2020-06-10] MEDS: ASCORBIC ACID 500 MG TABLET PO SCH (09:23)
[2020-06-10] MEDS: AMLODIPINE 10MG TABLET PO SCH (09:23)
[2020-06-10] MEDS: ZINC SULFATE 220 MG ( 50 ) CAPSULE PO SCH (09:23)
[2020-06-10] MEDS: ENOXAPARIN 40MG/0.4ML SYR SUBCUT SCH (09:23)
[2020-06-10] MEDS: INSULIN GLARGINE UD 100 UNITS/ML SYR SUBCUT SCH ×2 (09:54→22:21)
[2020-06-10] MEDS ORDERED: LIDOCAINE HCL/EPINEPHRINE 1%-EPI 1:100,000 50 ML VIAL INFIL SCH (12:00)
[2020-06-10 20:00] VITALS: BP 126/79
[2020-06-11] VITALS: BP 128/76
[2020-06-11 04:00] VITALS: BP 121/73
[2020-06-11] MEDS: FAMOTIDINE 20MG TABLET PO SCH (06:37)
[2020-06-11] MEDS: BLOOD SUGAR DIAGNOSTIC STRIP TEST SCH ×4 (06:37→21:46)
[2020-06-11] MEDS: INSULIN LISPRO 100 UNITS/ML SUBCUT SCH ×3 (07:50→17:50)
[2020-06-11 08:00] VITALS: BP 126/67
[2020-06-11] MEDS: ASCORBIC ACID 500 MG TABLET PO SCH (10:01)
[2020-06-11] MEDS: ZINC SULFATE 220 MG ( 50 ) CAPSULE PO SCH (10:01)
[2020-06-11] MEDS: AMLODIPINE 10MG TABLET PO SCH (10:02)
[2020-06-11] MEDS: LEVETIRACETAM 500MG PREMIX 100 ML IV SCH ×2 (10:03→21:46)
[2020-06-11] MEDS: ENOXAPARIN 40MG/0.4ML SYR SUBCUT SCH (10:03)
[2020-06-11] MEDS: INSULIN GLARGINE UD 100 UNITS/ML SYR SUBCUT SCH (10:26)
[2020-06-11 12:00] VITALS: BP 118/60
[2020-06-11 16:00] VITALS: BP 104/69
[2020-06-11 20:00] VITALS: BP 116/70
[2020-06-11] MEDS: IPRATROPIUM/ALBUTEROL 0.5-3(2.5)MG/3ML NEB HHN SCH (20:30)
[2020-06-12] VITALS: BP 115/71
[2020-06-12] MEDS: INSULIN GLARGINE UD 100 UNITS/ML SYR SUBCUT SCH ×3 (00:21→22:24)
[2020-06-12] MEDS: INSULIN LISPRO 100 UNITS/ML SUBCUT SCH ×5 (00:22→21:39)
[2020-06-12 04:00] VITALS: BP 125/65
[2020-06-12] MEDS: FAMOTIDINE 20MG TABLET PO SCH (06:43)
[2020-06-12] MEDS: BLOOD SUGAR DIAGNOSTIC STRIP TEST SCH ×4 (06:43→20:15)
[2020-06-12 07:26] LABS: HEMOGLOBIN. 10.5 g/dL (12.0-16.0); MEAN CORPUSCULAR HEMOGLOBIN 30.7 pg (28.0-32.0); MEAN CORPUSCULAR VOLUME 93.8 fL (81.0-99.0); MEAN PLATELET VOLUME 7.7 fl (7.4-10.4); PLATELET 284 x1000/uL (130-400); RED BLOOD CELL COUNT 3.42 mill/uL (4.2-5.4); RED CELL DISTRIBUTION WIDTH 15.3 % (11.6-14.6)
[2020-06-12 08:00] VITALS: BP 138/69
[2020-06-12 08:00] LABS: CHLORIDE 111 mEq/L (98-107)
[2020-06-12] MEDS: ASCORBIC ACID 500 MG TABLET PO SCH (09:15)
[2020-06-12] MEDS: ZINC SULFATE 220 MG ( 50 ) CAPSULE PO SCH (09:15)
[2020-06-12] MEDS: AMLODIPINE 10MG TABLET PO SCH (09:15)
[2020-06-12] MEDS: LEVETIRACETAM 500MG PREMIX 100 ML IV SCH ×2 (09:16→21:25)
[2020-06-12] MEDS: ENOXAPARIN 40MG/0.4ML SYR SUBCUT SCH (09:16)
[2020-06-12 12:00] VITALS: BP 147/82
[2020-06-12 16:00] VITALS: BP 120/69
[2020-06-12 18:24] LABS: PLATELET ESTIMATE NORMAL
[2020-06-12 20:00] VITALS: BP 144/79
[2020-06-13] VITALS: BP 138/67
[2020-06-13 04:00] VITALS: BP 132/69
[2020-06-13] MEDS: BLOOD SUGAR DIAGNOSTIC STRIP TEST SCH ×4 (06:44→21:30)
[2020-06-13] MEDS: FAMOTIDINE 20MG TABLET PO SCH (06:50)
[2020-06-13] MEDS: INSULIN LISPRO 100 UNITS/ML SUBCUT SCH ×4 (07:14→21:34)
[2020-06-13 08:00] VITALS: BP 146/64
[2020-06-13] MEDS: LEVETIRACETAM 500MG PREMIX 100 ML IV SCH ×2 (09:23→22:10)
[2020-06-13] MEDS: AMLODIPINE 10MG TABLET PO SCH (09:23)
[2020-06-13] MEDS: ZINC SULFATE 220 MG ( 50 ) CAPSULE PO SCH (09:23)
[2020-06-13] MEDS: ASCORBIC ACID 500 MG TABLET PO SCH (09:23)
[2020-06-13] MEDS: ENOXAPARIN 40MG/0.4ML SYR SUBCUT SCH (09:24)
[2020-06-13] MEDS: INSULIN GLARGINE UD 100 UNITS/ML SYR SUBCUT SCH ×2 (10:33→21:32)
[2020-06-13 12:00] VITALS: BP 127/73
[2020-06-13 16:00] VITALS: BP 136/70
[2020-06-13 20:00] VITALS: BP 139/76
[2020-06-14] VITALS: BP 121/63
[2020-06-14 04:00] VITALS: BP 118/78
[2020-06-14] MEDS: FAMOTIDINE 20MG TABLET PO SCH (06:41)
[2020-06-14] MEDS: BLOOD SUGAR DIAGNOSTIC STRIP TEST SCH ×4 (06:43→21:52)
[2020-06-14] MEDS: INSULIN LISPRO 100 UNITS/ML SUBCUT SCH ×4 (07:26→21:52)
[2020-06-14 08:00] VITALS: BP 123/75
[2020-06-14] MEDS: LEVETIRACETAM 500MG PREMIX 100 ML IV SCH ×2 (10:16→20:58)
[2020-06-14] MEDS: ENOXAPARIN 40MG/0.4ML SYR SUBCUT SCH (10:17)
[2020-06-14] MEDS: ZINC SULFATE 220 MG ( 50 ) CAPSULE PO SCH (10:17)
[2020-06-14] MEDS: AMLODIPINE 10MG TABLET PO SCH (10:17)
[2020-06-14] MEDS: ASCORBIC ACID 500 MG TABLET PO SCH (10:17)
[2020-06-14] MEDS: INSULIN GLARGINE UD 100 UNITS/ML SYR SUBCUT SCH ×2 (10:34→22:50)
[2020-06-14 12:00] VITALS: BP 139/72
[2020-06-14 16:00] VITALS: BP 137/75
[2020-06-14 20:00] VITALS: BP 116/70
[2020-06-15] VITALS: BP 115/63
[2020-06-15 04:00] VITALS: BP 111/57
[2020-06-15] MEDS: BLOOD SUGAR DIAGNOSTIC STRIP TEST SCH ×4 (06:57→21:08)
[2020-06-15] MEDS: INSULIN LISPRO 100 UNITS/ML SUBCUT SCH ×4 (07:50→21:36)
[2020-06-15 08:00] VITALS: BP 132/69
[2020-06-15] MEDS: ENOXAPARIN 40MG/0.4ML SYR SUBCUT SCH (09:24)
[2020-06-15] MEDS: ASCORBIC ACID 500 MG TABLET PO SCH (09:24)
[2020-06-15] MEDS: FAMOTIDINE 20MG TABLET PO SCH (09:25)
[2020-06-15] MEDS: ZINC SULFATE 220 MG ( 50 ) CAPSULE PO SCH (09:25)
[2020-06-15] MEDS: LEVETIRACETAM 500MG PREMIX 100 ML IV SCH ×2 (09:25→21:08)
[2020-06-15] MEDS: AMLODIPINE 10MG TABLET PO SCH (09:25)
[2020-06-15] MEDS: INSULIN GLARGINE UD 100 UNITS/ML SYR SUBCUT SCH ×2 (09:34→21:36)
[2020-06-15] MEDS: ACETAMINOPHEN 325MG TABLET PO PRN (11:47)
[2020-06-15 12:00] VITALS: BP 126/67
[2020-06-15] MEDS: IPRATROPIUM/ALBUTEROL 0.5-3(2.5)MG/3ML NEB HHN SCH (15:23)
[2020-06-15 16:00] VITALS: BP 123/68
[2020-06-15 20:00] VITALS: BP 128/66
[2020-06-16] VITALS: BP 113/61
[2020-06-16] MEDS: IPRATROPIUM/ALBUTEROL 0.5-3(2.5)MG/3ML NEB HHN SCH ×2 (00:30→21:04)
[2020-06-16 04:00] VITALS: BP 134/68
[2020-06-16] MEDS: FAMOTIDINE 20MG TABLET PO SCH (06:57)
[2020-06-16] MEDS: BLOOD SUGAR DIAGNOSTIC STRIP TEST SCH ×4 (06:59→21:00)
[2020-06-16 08:00] VITALS: BP 130/67
[2020-06-16] MEDS: ASCORBIC ACID 500 MG TABLET PO SCH (08:47)
[2020-06-16] MEDS: AMLODIPINE 10MG TABLET PO SCH (08:47)
[2020-06-16] MEDS: ZINC SULFATE 220 MG ( 50 ) CAPSULE PO SCH (08:47)
[2020-06-16] MEDS: LEVETIRACETAM 500MG PREMIX 100 ML IV SCH ×2 (08:47→22:03)
[2020-06-16] MEDS: ENOXAPARIN 40MG/0.4ML SYR SUBCUT SCH (08:48)
[2020-06-16] MEDS: INSULIN LISPRO 100 UNITS/ML SUBCUT SCH ×4 (09:12→22:05)
[2020-06-16] MEDS: INSULIN GLARGINE UD 100 UNITS/ML SYR SUBCUT SCH ×2 (09:53→22:04)
[2020-06-16 12:00] VITALS: BP 138/72
[2020-06-16 16:00] VITALS: BP 136/75
[2020-06-16 20:00] VITALS: BP 142/77
[2020-06-17] VITALS: BP 134/77
[2020-06-17 04:00] VITALS: BP 143/79
[2020-06-17] MEDS: FAMOTIDINE 20MG TABLET PO SCH (06:29)
[2020-06-17] MEDS: BLOOD SUGAR DIAGNOSTIC STRIP TEST SCH ×4 (06:36→21:00)
[2020-06-17 08:00] VITALS: BP 144/84
[2020-06-17] MEDS: IPRATROPIUM/ALBUTEROL 0.5-3(2.5)MG/3ML NEB HHN SCH (08:00)
[2020-06-17] MEDS: ZINC SULFATE 220 MG ( 50 ) CAPSULE PO SCH (08:47)
[2020-06-17] MEDS: AMLODIPINE 10MG TABLET PO SCH (08:47)
[2020-06-17] MEDS: ASCORBIC ACID 500 MG TABLET PO SCH (08:47)
[2020-06-17] MEDS: ENOXAPARIN 40MG/0.4ML SYR SUBCUT SCH (08:48)
[2020-06-17] MEDS: INSULIN LISPRO 100 UNITS/ML SUBCUT SCH ×4 (08:51→22:10)
[2020-06-17] MEDS: LEVETIRACETAM 500MG PREMIX 100 ML IV SCH ×2 (08:55→21:36)
[2020-06-17] MEDS: INSULIN GLARGINE UD 100 UNITS/ML SYR SUBCUT SCH ×2 (10:22→22:11)
[2020-06-17] MEDS ORDERED: LIDOCAINE HCL/EPINEPHRINE 1%-EPI 1:100,000 20 ML VIAL INFIL SCH (11:15)
[2020-06-17 12:00] VITALS: BP 144/80
[2020-06-17 16:00] VITALS: BP 144/88
[2020-06-17 20:00] VITALS: BP 128/62
[2020-06-18] VITALS: BP 151/77
[2020-06-18 04:00] VITALS: BP 145/75
[2020-06-18] MEDS: BLOOD SUGAR DIAGNOSTIC STRIP TEST SCH ×4 (06:46→21:18)
[2020-06-18] MEDS: INSULIN LISPRO 100 UNITS/ML SUBCUT SCH ×4 (07:50→21:24)
[2020-06-18 08:00] VITALS: BP 144/78
[2020-06-18] MEDS: LEVETIRACETAM 500MG PREMIX 100 ML IV SCH ×2 (08:59→21:12)
[2020-06-18] MEDS: ASCORBIC ACID 500 MG TABLET PO SCH (09:00)
[2020-06-18] MEDS: ZINC SULFATE 220 MG ( 50 ) CAPSULE PO SCH (09:00)
[2020-06-18] MEDS: AMLODIPINE 10MG TABLET PO SCH (09:00)
[2020-06-18] MEDS: ENOXAPARIN 40MG/0.4ML SYR SUBCUT SCH (09:01)
[2020-06-18] MEDS: INSULIN GLARGINE UD 100 UNITS/ML SYR SUBCUT SCH ×2 (10:35→22:06)
[2020-06-18 12:00] VITALS: BP 155/86
[2020-06-18] MEDS ORDERED: DEXTROSE 50% WATER 50ML SYRINGE IV PRN (12:15)
[2020-06-18 16:00] VITALS: BP 146/84
[2020-06-18 20:00] VITALS: BP 157/91
[2020-06-19] VITALS: BP 138/75
[2020-06-19 04:00] VITALS: BP 157/91
[2020-06-19] MEDS: BLOOD SUGAR DIAGNOSTIC STRIP TEST SCH ×4 (07:53→21:00)
[2020-06-19 08:00] VITALS: BP 127/76
[2020-06-19] MEDS: ASCORBIC ACID 500 MG TABLET PO SCH (09:39)
[2020-06-19] MEDS: ZINC SULFATE 220 MG ( 50 ) CAPSULE PO SCH (09:39)
[2020-06-19] MEDS: AMLODIPINE 10MG TABLET PO SCH (09:42)
[2020-06-19] MEDS: ENOXAPARIN 40MG/0.4ML SYR SUBCUT SCH (09:43)
[2020-06-19] MEDS: LEVETIRACETAM 500MG PREMIX 100 ML IV SCH (09:43)
[2020-06-19] MEDS: INSULIN GLARGINE UD 100 UNITS/ML SYR SUBCUT SCH ×2 (09:46→23:28)
[2020-06-19] MEDS: INSULIN LISPRO 100 UNITS/ML SUBCUT SCH ×4 (09:47→23:28)
[2020-06-19 12:00] VITALS: BP 148/80
[2020-06-19 16:00] VITALS: BP 114/71
[2020-06-19 20:00] VITALS: BP 114/79
[2020-06-19] MEDS ORDERED: DIPHENHYDRAMINE 50MG CAPSULE PO PRN (23:15)
[2020-06-20] VITALS: BP 121/66
[2020-06-20 04:00] VITALS: BP 109/64
[2020-06-20] MEDS: BLOOD SUGAR DIAGNOSTIC STRIP TEST SCH ×4 (07:20→21:57)
[2020-06-20 07:25] LABS: CHLORIDE 110 mEq/L (98-107)
[2020-06-20 07:36] LABS: HEMATOCRIT 33.4 % (36.0-48.0); HEMOGLOBIN 11.2 g/dL (12.0-16.0); MEAN CORPUSCULAR HEMOGLOBIN 31.1 pg (28.0-32.0); MEAN CORPUSCULAR VOLUME 93.2 fL (81.0-99.0); PLATELET 269 x1000/uL (130-400); RED BLOOD CELL COUNT 3.59 mill/uL (4.2-5.4); RED CELL DISTRIBUTION WIDTH 15.6 % (11.6-14.6)
[2020-06-20] MEDS: INSULIN LISPRO 100 UNITS/ML SUBCUT SCH ×4 (07:50→22:51)
[2020-06-20 08:00] VITALS: BP 102/67
[2020-06-20] MEDS: AMLODIPINE 10MG TABLET PO SCH (09:00)
[2020-06-20] MEDS: ENOXAPARIN 40MG/0.4ML SYR SUBCUT SCH (09:05)
[2020-06-20] MEDS: ASCORBIC ACID 500 MG TABLET PO SCH (09:05)
[2020-06-20] MEDS: ZINC SULFATE 220 MG ( 50 ) CAPSULE PO SCH (09:05)
[2020-06-20] MEDS: INSULIN GLARGINE UD 100 UNITS/ML SYR SUBCUT SCH ×2 (10:57→22:51)
[2020-06-20 12:00] VITALS: BP 147/85
[2020-06-20] MEDS ORDERED: ACETAMINOPHEN 325MG TABLET PO PRN (16:45)
[2020-06-20] MEDS ORDERED: TRAMADOL 50MG TABLET PO PRN (16:45)
[2020-06-20 16:50] VITALS: BP 151/85
[2020-06-20 20:00] VITALS: BP 132/83
[2020-06-21] VITALS: BP 129/75
[2020-06-21 04:00] VITALS: BP 179/83
[2020-06-21] MEDS: BLOOD SUGAR DIAGNOSTIC STRIP TEST SCH ×2 (07:58→12:52)
[2020-06-21 08:00] VITALS: BP 154/94
[2020-06-21] MEDS: ZINC SULFATE 220 MG ( 50 ) CAPSULE PO SCH (09:48)
[2020-06-21] MEDS: ASCORBIC ACID 500 MG TABLET PO SCH (09:48)
[2020-06-21] MEDS: ENOXAPARIN 40MG/0.4ML SYR SUBCUT SCH (09:48)
[2020-06-21] MEDS: AMLODIPINE 10MG TABLET PO SCH (09:49)
[2020-06-21] MEDS: INSULIN LISPRO 100 UNITS/ML SUBCUT SCH ×2 (09:55→13:01)
[2020-06-21] MEDS: INSULIN GLARGINE UD 100 UNITS/ML SYR SUBCUT SCH (13:01)
[2020-06-21 14:05] VITALS: BP 147/87
[2020-06-24 20:00] VITALS: BP 95/40
== END 2020-06-21 15:25 | DRG 853 ==
LOC: ER 14:18 → MICUSO 15:50 → EDBEDREQ 16:34 → EDBEDREQTM 16:34 → 5WST 05-20 23:40 → MICUSO 05-20 23:50 → 7EST 05-21 22:21 → 6EST 06-01 13:05
PROVIDERS: ADMIT Internal Medicine; ATTEND Internal Medicine
PROC: 5A1945Z Respiratory Ventilation, 24-96 Consecutive Hours (ICD-10-PCS; principal; 2020-05-19)
PROC: 0BH18EZ Insertion of Endotracheal Airway into Trachea, Via Natural or Artificial Opening Endoscopic (ICD-10-PCS; 2020-05-19)
PROC: 06HY33Z Insertion of Infusion Device into Lower Vein, Percutaneous Approach (ICD-10-PCS; 2020-05-19)
PROC: 0JBM0ZZ Excision of Left Upper Leg Subcutaneous Tissue and Fascia, Open Approach (ICD-10-PCS; 2020-06-11)
PROC: 0JBM0ZZ Excision of Left Upper Leg Subcutaneous Tissue and Fascia, Open Approach (ICD-10-PCS; 2020-06-11)
PROC: 0JBL0ZZ Excision of Right Upper Leg Subcutaneous Tissue and Fascia, Open Approach (ICD-10-PCS; 2020-06-14)
PROC: 0JBL0ZZ Excision of Right Upper Leg Subcutaneous Tissue and Fascia, Open Approach (ICD-10-PCS; 2020-06-14)
DX: A41.89 Other specified sepsis (principal); U07.1 COVID-19; J96.00 Acute respiratory failure, unspecified whether with hypoxia or hypercapnia; E11.10 Type 2 diabetes mellitus with ketoacidosis without coma; G92 Toxic encephalopathy; J12.82 Pneumonia due to coronavirus disease 2019; J44.0 Chronic obstructive pulmonary disease with (acute) lower respiratory infection; N17.9 Acute kidney failure, unspecified; N39.0 Urinary tract infection, site not specified; E87.2 Acidosis; E46 Unspecified protein-calorie malnutrition; E78.00 Pure hypercholesterolemia, unspecified; E78.5 Hyperlipidemia, unspecified; E86.9 Volume depletion, unspecified; E87.5 Hyperkalemia; E87.6 Hypokalemia; G40.909 Epilepsy, unspecified, not intractable, without status epilepticus; I10 Essential (primary) hypertension; E11.649 Type 2 diabetes mellitus with hypoglycemia without coma; I25.10 Atherosclerotic heart disease of native coronary artery without angina pectoris; S71.002A Unspecified open wound, left hip, initial encounter; S71.001A Unspecified open wound, right hip, initial encounter; X58.XXXA Exposure to other specified factors, initial encounter; Z86.73 Personal history of transient ischemic attack (TIA), and cerebral infarction without residual deficits; Z78.1 Physical restraint status; Z79.2 Long term (current) use of antibiotics; Z79.4 Long term (current) use of insulin; Z68.25 Body mass index [BMI] 25.0-25.9, adult; Z79.899 Other long term (current) drug therapy; Y93.89 Activity, other specified; Y92.89 Other specified places as the place of occurrence of the external cause; Y99.8 Other external cause status
CPT/HCPCS: 36415; 36600; 71045; 80048; 80053; 80156; 80165; 80184; 80185; 80305; 80320; 81003; 82040; 82375; 82805; 82962; 83605; 83735; 83880; 84100; 84134; 84145; 84478; 84484; 85025; 85027; 86850; 86900; 87077; 87426; 93005; 94002; 94003; 94640; 97116; 97162; 97166; 97530; 97535; 99291; C1893; C9113; J0360; J1100; J1650; J1815; J1953; J2543; J2704; J3370; J3480; J3490; J7030; J7040; J7050; J7060; J7070; Q0163; U0003; A4315; G0480

== ENCOUNTER 2020-11-24 22:43 | Emergency (ER) | payer MEDICARE, MEDICAID ==
[~2020-11-24] VITALS: Ht 160 cm; Wt 55.0 kg
[2020-11-25] MEDS ORDERED: IBUPROFEN 600MG TABLET PO STA (01:51)
[2020-11-25 02:25] LABS: BASOPHILS % 0.5 % (0.0-2.0); EOSINOPHILS % 0.9 % (0.0-5.0); HEMATOCRIT. 37.8 % (36.0-48.0); HEMOGLOBIN. 12.7 g/dL (12.0-16.0); LYMPHOCYTES % 21.5 % (20.0-50.0); MEAN CORPUSCULAR HEMOGLOBIN 32.1 pg (28.0-32.0); MEAN CORPUSCULAR VOLUME 95.7 fL (81.0-99.0); MEAN PLATELET VOLUME 8.2 fl (7.4-10.4); MONOCYTES % 12.3 % (2.0-8.0); NEUTROPHILS % 64.8 % (40.0-76.0); PLATELET 229 x1000/uL (130-400); RED BLOOD CELL COUNT 3.95 mill/uL (4.2-5.4); RED CELL DISTRIBUTION WIDTH 14.3 % (11.6-14.6)
[2020-11-25 02:32] LABS: CHLORIDE 111 mEq/L (98-107)
[2020-11-25 02:43] LABS: BETA HYDROXYBUTYRATE 0.1 mMol/L (0.0-0.3)
[2020-11-25 03:08] LABS: CLARITY URINE CLOUDY (CLEAR); COLOR URINE YELLOW (YELLOW); KETONES URINE NEGATIVE (NEGATIVE); LEUKOCYTE ESTERASE URINE NEGATIVE (NEGATIVE); NITRITE URINE NEGATIVE (NEGATIVE); OCCULT BLOOD URINE TRACE (NEGATIVE); PROTEIN URINE 3+ (NEGATIVE); SPECIFIC GRAVITY URINE 1.014 (1.005-1.030); UROBILINOGEN URINE 0.2 E.U./dL (0.2-1.0)
[2020-11-25 03:26] VITALS: BP 151/89
== END 2020-11-25 03:45 | disposition home or self-care (01) ==
LOC: ER 22:43
DX: E11.65 Type 2 diabetes mellitus with hyperglycemia (principal); I51.7 Cardiomegaly; K21.9 Gastro-esophageal reflux disease without esophagitis; R56.9 Unspecified convulsions; H26.9 Unspecified cataract; M19.90 Unspecified osteoarthritis, unspecified site; Z79.4 Long term (current) use of insulin; Z86.73 Personal history of transient ischemic attack (TIA), and cerebral infarction without residual deficits
CPT/HCPCS: 36415; 80053; 81003; 82010; 82962; 85025; 93005; 99284

== ENCOUNTER 2021-03-09 13:04 | Emergency (ER) | payer OTHER ==
[~2021-03-09] VITALS: Ht 152.4 cm; Wt 65.0 kg
[2021-03-09 18:26] LABS: BASOPHILS % 0.6 % (0.0-2.0); EOSINOPHILS % 1.7 % (0.0-5.0); HEMATOCRIT. 43.3 % (36.0-48.0); HEMOGLOBIN. 14.1 g/dL (12.0-16.0); LYMPHOCYTES % 32.6 % (20.0-50.0); MEAN CORPUSCULAR HEMOGLOBIN 31.2 pg (28.0-32.0); MEAN CORPUSCULAR VOLUME 95.9 fL (81.0-99.0); MEAN PLATELET VOLUME 9.2 fl (7.4-10.4); NEUTROPHILS % 54.1 % (40.0-76.0); PLATELET 202 x1000/uL (130-400); RED BLOOD CELL COUNT 4.51 mill/uL (4.2-5.4); RED CELL DISTRIBUTION WIDTH 13.8 % (11.6-14.6)
[2021-03-09 18:30] LABS: CHLORIDE 115 mEq/L (98-107)
[2021-03-09] MEDS ORDERED: FURO-151 MT (21:27)
[2021-03-09] MEDS ORDERED: FUROSEMIDE 40MG/4ML VIAL IVP NR (21:30)
[2021-03-09] MEDS ORDERED: FUROSEMIDE 40MG TABLET PO ONE (22:00)
[2021-03-09 22:33] VITALS: BP 153/97
== END 2021-03-09 22:36 | disposition home or self-care (01) ==
LOC: ER 13:04 → CANBEDREQ 03-10 01:22
DX: R06.00 Dyspnea, unspecified (principal); M79.89 Other specified soft tissue disorders; I50.9 Heart failure, unspecified; K21.9 Gastro-esophageal reflux disease without esophagitis; E11.9 Type 2 diabetes mellitus without complications; R56.9 Unspecified convulsions; M19.90 Unspecified osteoarthritis, unspecified site; Z79.4 Long term (current) use of insulin; Z86.73 Personal history of transient ischemic attack (TIA), and cerebral infarction without residual deficits; Z20.822 Contact with and (suspected) exposure to COVID-19
CPT/HCPCS: 36415; 71045; 80053; 83880; 84484; 85025; 87426; 93005; 99285

== ENCOUNTER 2021-07-29 11:33 | Emergency (ER) | payer OTHER, MEDICAID ==
[~2021-07-29] VITALS: Ht 162.6 cm; Wt 60.0 kg
[~2021-07-29 11:33] MED LIST changes: +FURO-151 MT
[2021-07-29 12:32] LABS: BASOPHILS % 0.3 % (0.0-2.0); EOSINOPHILS % 0.9 % (0.0-5.0); HEMATOCRIT. 34.6 % (36.0-48.0); HEMOGLOBIN. 11.4 g/dL (12.0-16.0); LYMPHOCYTES % 35.8 % (20.0-50.0); MEAN CORPUSCULAR VOLUME 91.4 fL (81.0-99.0); MEAN PLATELET VOLUME 9.5 fl (7.4-10.4); PLATELET 182 x1000/uL (130-400); RED BLOOD CELL COUNT 3.79 mill/uL (4.2-5.4); RED CELL DISTRIBUTION WIDTH 15.9 % (11.6-14.6)
[2021-07-29 12:40] LABS: CHLORIDE 113 mEq/L (98-107)
[2021-07-29] MEDS ORDERED: IOHEXOL-300 100 ML BOTTLE ONE (14:04)
[2021-07-29 14:54] LABS: CLARITY URINE CLEAR (CLEAR); COLOR URINE YELLOW (YELLOW); KETONES URINE NEGATIVE (NEGATIVE); LEUKOCYTE ESTERASE URINE TRACE (NEGATIVE); NITRITE URINE NEGATIVE (NEGATIVE); OCCULT BLOOD URINE NEGATIVE (NEGATIVE); PH URINE 5.5 (4.5-8.0); PROTEIN URINE 2+ (NEGATIVE); SPECIFIC GRAVITY URINE 1.018 (1.005-1.030); UROBILINOGEN URINE 0.2 E.U./dL (0.2-1.0)
[2021-07-29] MEDS ORDERED: METHYLPREDNISOLONE SOD SUCC 40 MG/ML VIAL IV NR (16:15)
[2021-07-29] MEDS ORDERED: CEFTRIAXONE 1 G PREMIX 50 ML IV SCH (16:30)
[2021-07-29] MEDS ORDERED: CEFTRIAXONE 1 G PREMIX 50 ML IV ONE (16:45)
[2021-07-29] MEDS ORDERED: AZITHROMYCIN 500 MG in DEXT 5% WATER 250 ML IV SCH (17:00)
[2021-07-29 18:00] VITALS: BP 15/82
[2021-07-29] MEDS ORDERED: IPRATROPIUM/ALBUTEROL 0.5-3(2.5)MG/3ML NEB HHN SCH (18:00)
== END 2021-07-29 20:48 | disposition short-term general hospital (02) ==
LOC: ER 12:10 → EDBEDREQ 16:46 → ENRESERV 17:25 → CANRESERV 17:25 → ER 20:48 → CANBEDREQ 07-30 03:00
DX: R06.02 Shortness of breath (principal); N39.0 Urinary tract infection, site not specified; N17.9 Acute kidney failure, unspecified; Z20.822 Contact with and (suspected) exposure to COVID-19; K21.9 Gastro-esophageal reflux disease without esophagitis; Z86.73 Personal history of transient ischemic attack (TIA), and cerebral infarction without residual deficits; Z79.899 Other long term (current) drug therapy
CPT/HCPCS: 36415; 71045; 74177; 80053; 81003; 82962; 83880; 84484; 85025; 87086; 87426; 93005; 93970; 96365; 96375; 99285; J0456; J2920; J7060; Q9967

== ENCOUNTER 2021-08-02 14:36 | Emergency (ER) | payer OTHER, MEDICAID ==
[~2021-08-02] VITALS: Ht 165.1 cm; Wt 72.0 kg
[2021-08-02] MEDS ORDERED: SODIUM CHLORIDE 0.9% 1000ML BAG (SEPSIS BOLUS) IV ONE (15:00)
[2021-08-02] MEDS ORDERED: AZITHROMYCIN 500MG/250ML 250 ML IV ONE (15:00)
[2021-08-02] MEDS ORDERED: CEFTRIAXONE 1 G PREMIX 50 ML IV ONE (15:00)
[2021-08-02] MEDS ORDERED: ONDANSETRON HCL 4MG/2ML INJ IV ONE (15:00)
[2021-08-02 16:13] LABS: BASOPHILS % 0.1 % (0.0-2.0); HEMATOCRIT. 40.8 % (36.0-48.0); HEMOGLOBIN. 13.3 g/dL (12.0-16.0); LYMPHOCYTES % 9.2 % (20.0-50.0); MEAN CORPUSCULAR HEMOGLOBIN 30.2 pg (28.0-32.0); MEAN PLATELET VOLUME 9.8 fl (7.4-10.4); MONOCYTES % 7.1 % (2.0-8.0); NEUTROPHILS % 83.6 % (40.0-76.0); PLATELET 185 x1000/uL (130-400); RED BLOOD CELL COUNT 4.38 mill/uL (4.2-5.4); RED CELL DISTRIBUTION WIDTH 16.4 % (11.6-14.6)
[2021-08-02 16:22] LABS: CHLORIDE 104 mEq/L (98-107)
[2021-08-02] MEDS ORDERED: SODIUM BICARBONATE 8.4% 1 MEQ/ML 50ML SYR IV ONE (18:45)
[2021-08-02 22:55] VITALS: BP 136/79
== END 2021-08-02 22:55 | disposition short-term general hospital (02) ==
LOC: ER 14:36
DX: U07.1 COVID-19 (principal); E86.0 Dehydration; R11.2 Nausea with vomiting, unspecified; I10 Essential (primary) hypertension; E11.9 Type 2 diabetes mellitus without complications; Z79.899 Other long term (current) drug therapy; Z86.73 Personal history of transient ischemic attack (TIA), and cerebral infarction without residual deficits; Z86.59 Personal history of other mental and behavioral disorders
CPT/HCPCS: 36415; 71045; 80053; 82962; 83605; 84145; 84484; 85025; 87040; 87426; 93005; 96365; 96366; 96368; 96375; 99285; J0456; J0696; J2405; J3490; J7030

== ENCOUNTER 2021-11-04 11:03 | Inpatient (IN) | payer OTHER, MEDICAID ==
[~2021-11-04] VITALS: Ht 160 cm; Wt 72.6 kg
[2021-11-04 15:54] LABS: CHLORIDE 108 mEq/L (98-107)
[2021-11-04 15:56] LABS: BASOPHILS % 0.6 % (0.0-2.0); EOSINOPHILS % 1.1 % (0.0-5.0); HEMOGLOBIN. 10.9 g/dL (12.0-16.0); LYMPHOCYTES % 28.1 % (20.0-50.0); MEAN CORPUSCULAR HEMOGLOBIN 28.6 pg (28.0-32.0); MEAN CORPUSCULAR VOLUME 94.5 fL (81.0-99.0); MEAN PLATELET VOLUME 9.8 fl (7.4-10.4); MONOCYTES % 14.5 % (2.0-8.0); NEUTROPHILS % 55.7 % (40.0-76.0); PLATELET 186 x1000/uL (130-400); RED BLOOD CELL COUNT 3.81 mill/uL (4.2-5.4); RED CELL DISTRIBUTION WIDTH 17.1 % (11.6-14.6)
[2021-11-04] MEDS ORDERED: AZITHROMYCIN 500MG/250ML 250 ML IV ONE (16:45)
[2021-11-04] MEDS ORDERED: SODIUM CHLORIDE 0.9% 1000ML BAG (SEPSIS BOLUS) IV ONE (16:45)
[2021-11-04] MEDS ORDERED: CEFTRIAXONE 1 G PREMIX 50 ML IV ONE (16:45)
[2021-11-04] MEDS ORDERED: ASPIRIN 81MG TABLET PO ONE (16:45)
[2021-11-04 21:08] LABS: CLARITY URINE CLEAR (CLEAR); COLOR URINE YELLOW (YELLOW); KETONES URINE NEGATIVE (NEGATIVE); LEUKOCYTE ESTERASE URINE NEGATIVE (NEGATIVE); NITRITE URINE NEGATIVE (NEGATIVE); OCCULT BLOOD URINE NEGATIVE (NEGATIVE); PH URINE 6.5 (4.5-8.0); PROTEIN URINE 1+ (NEGATIVE); SPECIFIC GRAVITY URINE 1.009 (1.005-1.030); UROBILINOGEN URINE 0.2 E.U./dL (0.2-1.0)
[2021-11-04] MEDS ORDERED: KETOROLAC 15MG/ML VIAL IV ONE (21:15)
[2021-11-05 05:47] VITALS: BP 152/81
[2021-11-05 10:15] VITALS: BP 151/78
[2021-11-05] MEDS ORDERED: PREG50CA MT (11:26)
[2021-11-05] MEDS ORDERED: LOSA50TA41 MT (11:26)
[2021-11-05] MEDS ORDERED: AMLO10TA4 MT (11:26)
[2021-11-05] MEDS ORDERED: PROT40 MT (11:26)
[2021-11-05] MEDS ORDERED: FURO80TA87 MT (11:26)
[2021-11-05] MEDS ORDERED: ATOR40TA70 MT (11:26)
[2021-11-05] MEDS ORDERED: IPRATROPIUM/ALBUTEROL 0.5-3(2.5)MG/3ML NEB HHN PRN (12:45)
[2021-11-05] MEDS ORDERED: DEXTROSE 50% WATER 50ML SYRINGE IV PRN (12:45)
[2021-11-05] MEDS: PREGABALIN 50 MG CAPSULE PO SCH ×2 (14:30→17:40)
[2021-11-05] MEDS: PANTOPRAZOLE 40MG DR TABLET PO SCH (14:30)
[2021-11-05] MEDS: LOSARTAN POTASSIUM 50 MG TABLET PO SCH ×2 (14:33→17:40)
[2021-11-05 16:00] VITALS: BP 145/81
[2021-11-05] MEDS ORDERED: IPRATROPIUM/ALBUTEROL 0.5-3(2.5)MG/3ML NEB HHN SCH (16:00)
[2021-11-05] MEDS: BLOOD SUGAR DIAGNOSTIC STRIP TEST SCH ×2 (16:40→21:43)
[2021-11-05] MEDS: INSULIN LISPRO 100 UNITS/ML SUBCUT SCH ×2 (17:10→21:00)
[2021-11-05] MEDS ORDERED: TRAMADOL 50MG TABLET PO PRN (20:00)
[2021-11-05] MEDS ORDERED: NALOXONE HCL 0.4MG/ML VIAL IV PRN (20:15)
[2021-11-05] MEDS: ATORVASTATIN CALCIUM 40MG TABLET PO SCH (21:56)
[2021-11-06] VITALS: BP 151/80
[2021-11-06] MEDS: ALBUTEROL 6.7GM HFA INHALER INH SCH ×6 (00:13→20:44)
[2021-11-06 04:00] VITALS: BP 143/70
[2021-11-06] MEDS: INSULIN LISPRO 100 UNITS/ML SUBCUT SCH ×4 (05:34→20:44)
[2021-11-06] MEDS: BLOOD SUGAR DIAGNOSTIC STRIP TEST SCH ×4 (05:34→20:41)
[2021-11-06 08:00] VITALS: BP 142/80
[2021-11-06] MEDS ORDERED: FUROSEMIDE 100MG/10ML VIAL IVP SCH (09:00)
[2021-11-06] MEDS: PANTOPRAZOLE 40MG DR TABLET PO SCH (09:41)
[2021-11-06] MEDS: PREGABALIN 50 MG CAPSULE PO SCH ×3 (09:41→17:43)
[2021-11-06] MEDS: LOSARTAN POTASSIUM 50 MG TABLET PO SCH ×2 (09:41→17:00)
[2021-11-06] MEDS: AMLODIPINE 10MG TABLET PO SCH (09:41)
[2021-11-06] MEDS: ACETAMINOPHEN 325MG TABLET PO PRN ×2 (09:41→14:38)
[2021-11-06] MEDS: HEPARIN 5000 UNITS/ML VIAL SUBCUT SCH ×2 (09:41→20:43)
[2021-11-06 12:00] VITALS: BP 133/80
[2021-11-06 16:00] VITALS: BP 106/70
[2021-11-06] MEDS: HYDROCODONE/ACETAMINOPHEN 5/325MG TABLET PO PRN (17:44)
[2021-11-06 20:00] VITALS: BP 137/76
[2021-11-06] MEDS: ATORVASTATIN CALCIUM 40MG TABLET PO SCH (20:42)
[2021-11-07] VITALS: BP 117/93
[2021-11-07] MEDS: ALBUTEROL 6.7GM HFA INHALER INH SCH ×6 (02:00→21:21)
[2021-11-07 04:00] VITALS: BP 136/73
[2021-11-07] MEDS: INSULIN LISPRO 100 UNITS/ML SUBCUT SCH ×4 (06:01→21:20)
[2021-11-07] MEDS: BLOOD SUGAR DIAGNOSTIC STRIP TEST SCH ×4 (06:01→20:48)
[2021-11-07 08:00] VITALS: BP 108/65
[2021-11-07] MEDS: LOSARTAN POTASSIUM 50 MG TABLET PO SCH ×2 (09:00→16:57)
[2021-11-07] MEDS: AMLODIPINE 10MG TABLET PO SCH (09:00)
[2021-11-07] MEDS: LIDOCAINE 5% PATCH TOP SCH (09:27)
[2021-11-07] MEDS: PANTOPRAZOLE 40MG DR TABLET PO SCH (09:27)
[2021-11-07] MEDS: PREGABALIN 50 MG CAPSULE PO SCH ×3 (09:27→19:04)
[2021-11-07] MEDS: HYDROCODONE/ACETAMINOPHEN 5/325MG TABLET PO PRN ×2 (09:28→16:54)
[2021-11-07] MEDS: HEPARIN 5000 UNITS/ML VIAL SUBCUT SCH ×2 (09:29→21:20)
[2021-11-07 12:00] VITALS: BP 132/69
[2021-11-07 16:00] VITALS: BP 155/82
[2021-11-07 20:00] VITALS: BP 138/78
[2021-11-07] MEDS: ATORVASTATIN CALCIUM 40MG TABLET PO SCH (21:20)
[2021-11-08] VITALS: BP 114/64
[2021-11-08 04:00] VITALS: BP 135/63
[2021-11-08] MEDS: BLOOD SUGAR DIAGNOSTIC STRIP TEST SCH ×3 (06:11→16:40)
[2021-11-08] MEDS: ALBUTEROL 6.7GM HFA INHALER INH SCH ×4 (06:15→17:03)
[2021-11-08] MEDS: INSULIN LISPRO 100 UNITS/ML SUBCUT SCH ×3 (06:16→18:11)
[2021-11-08 08:00] VITALS: BP 157/97
[2021-11-08] MEDS: PREGABALIN 50 MG CAPSULE PO SCH ×3 (08:46→16:55)
[2021-11-08] MEDS: PANTOPRAZOLE 40MG DR TABLET PO SCH (08:47)
[2021-11-08] MEDS: AMLODIPINE 10MG TABLET PO SCH (08:47)
[2021-11-08] MEDS: HYDROCODONE/ACETAMINOPHEN 5/325MG TABLET PO PRN ×2 (08:47→16:55)
[2021-11-08] MEDS: HEPARIN 5000 UNITS/ML VIAL SUBCUT SCH (08:48)
[2021-11-08] MEDS: LOSARTAN POTASSIUM 50 MG TABLET PO SCH ×2 (08:48→16:55)
[2021-11-08] MEDS: LIDOCAINE 5% PATCH TOP SCH (10:39)
[2021-11-08 12:00] VITALS: BP 115/60
[2021-11-08 16:00] VITALS: BP 139/87
[2021-11-08 17:21] VITALS: BP 139/87
== END 2021-11-08 18:28 | disposition home or self-care (01) | DRG 178 ==
LOC: ER 11:03 → MICUSO 20:05 → 7EST 11-05 05:54
PROVIDERS: ADMIT Internal Medicine; ATTEND Internal Medicine
DX: U07.1 COVID-19 (principal); N17.9 Acute kidney failure, unspecified; I12.9 Hypertensive chronic kidney disease with stage 1 through stage 4 chronic kidney disease, or unspecified chronic kidney disease; Z79.4 Long term (current) use of insulin; E11.22 Type 2 diabetes mellitus with diabetic chronic kidney disease; N18.9 Chronic kidney disease, unspecified; Z86.73 Personal history of transient ischemic attack (TIA), and cerebral infarction without residual deficits; J44.9 Chronic obstructive pulmonary disease, unspecified; K21.9 Gastro-esophageal reflux disease without esophagitis; M19.90 Unspecified osteoarthritis, unspecified site; R56.9 Unspecified convulsions; M54.12 Radiculopathy, cervical region
CPT/HCPCS: 36415; 71045; 73030; 80053; 81003; 82962; 83036; 83605; 83880; 84484; 85025; 87426; 93005; 93970; 99285; C9803; J0456; J0696; J1644; J1815; J1885; J7030

== ENCOUNTER 2023-12-07 08:31 | Emergency (ER) | payer MEDICARE, MEDICAID ==
[~2023-12-07] VITALS: Ht 162.6 cm; Wt 68.0 kg
[~2023-12-07 08:31] MED LIST changes: +AMLO10TA4 MT; -AMLO5TAB4 MT; +ATOR40TA70 MT; +FURO80TA87 MT; +LOSA50TA41 MT; +PREG50CA MT; +PROT40 MT
[2023-12-07 08:34] VITALS: O2SAT 98
[2023-12-07] MEDS ORDERED: ACETAMINOPHEN 325MG TABLET PO NR (12:30)
[2023-12-07 13:21] VITALS: BP 136/86; PULSE 77; RESP 15; TEMP 99
== END 2023-12-07 17:02 | disposition home or self-care (01) ==
LOC: ER 08:31
DX: S00.03XA Contusion of scalp, initial encounter (principal); E11.9 Type 2 diabetes mellitus without complications; N28.9 Disorder of kidney and ureter, unspecified; Z86.73 Personal history of transient ischemic attack (TIA), and cerebral infarction without residual deficits; Z86.59 Personal history of other mental and behavioral disorders; Z79.899 Other long term (current) drug therapy; Z98.890 Other specified postprocedural states; W18.30XA Fall on same level, unspecified, initial encounter; Y93.89 Activity, other specified; Y92.89 Other specified places as the place of occurrence of the external cause; Y99.8 Other external cause status
CPT/HCPCS: 29130; 73140; 99284

== ENCOUNTER 2023-12-11 08:39 | Emergency (ER) | payer OTHER, MEDICAID ==
[~2023-12-11] VITALS: Ht 165.1 cm; Wt 73.0 kg
[2023-12-11 08:53] VITALS: O2SAT 98
[2023-12-11] MEDS: ACETAMINOPHEN 325MG TABLET PO NR (09:33)
[2023-12-11 11:50] LABS: BASOPHILS % 0.4 % (0.0-2.0); DIFFERENTIAL COMMENT 0; EOSINOPHILS % 0.6 % (0.0-5.0); HEMATOCRIT. 36.4 % (36.0-48.0); HEMOGLOBIN. 12.1 g/dL (12.0-16.0); LYMPHOCYTES % 15.7 % (20.0-50.0); MEAN CORPUSCULAR HEMOGLOBIN 32.3 pg (28.0-32.0); MEAN CORPUSCULAR HGB CONC 33.1 g/dL (31.0-37.0); MEAN CORPUSCULAR VOLUME 97.6 fL (81.0-99.0); MEAN PLATELET VOLUME 10.5 fl (7.4-10.4); NEUTROPHILS % 73.3 % (40.0-76.0); PLATELET 177 x1000/uL (130-400); RED BLOOD CELL COUNT 3.73 mill/uL (4.2-5.4); RED CELL DISTRIBUTION WIDTH 16.6 % (11.6-14.6); WHITE BLOOD COUNT 9.1 x1000/uL (4.5-11.0)
[2023-12-11 11:59] LABS: CARBON DIOXIDE 28 mEq/L (21-32); CHLORIDE 108 mEq/L (98-107); SODIUM 144 mEq/L (136-145)
[2023-12-11 12:00] LABS: CALCIUM 10.1 mg/dL (8.7-10.4)
[2023-12-11 12:04] LABS: CREATININE 2.4 mg/dL (0.6-1.0); GLUCOSE 112 mg/dL (70-105)
[2023-12-11 12:05] LABS: UREA NITROGEN BLOOD 73 mg/dL (9-23)
[2023-12-11 12:06] LABS: ALANINE AMINOTRANSFERASE 17 IU/L (10-49); ALBUMIN 4.6 g/dL (3.2-4.8); ASPARTATE AMINOTRANSFERASE 35 IU/L (<34); INR 0.9; PROTHROMBIN TIME 10.1 sec (9.6-11.0)
[2023-12-11 12:07] LABS: BILIRUBIN DIRECT 0.1 mg/dL (<=3.0); BILIRUBIN TOTAL 0.4 mg/dL (0.1-1.0); CREATINE KINASE 401 IU/L (34-145); PROTEIN TOTAL 7.2 g/dL (6.0-8.3); TROPONIN I HIGH SENSITIVITY 14 ng/L (3.0-34)
[2023-12-11] MEDS: POTASSIUM CHLORIDE 20MEQ/PACKET PO NR (14:03)
[2023-12-11 15:41] VITALS: BP 135/74; PULSE 88; RESP 16; TEMP 36.72516; O2SAT 98
[2023-12-12] MEDS ORDERED: ONDANSETRON HCL 4MG/2ML INJ IV PRN (10:30)
[2023-12-12] MEDS ORDERED: HYDROCODONE/ACETAMINOPHEN 7.5/325MG TABLET PO PRN (10:30)
[2023-12-12] MEDS ORDERED: AMLODIPINE 5MG TABLET PO SCH (10:30)
[2023-12-12] MEDS ORDERED: ATORVASTATIN CALCIUM 40MG TABLET PO SCH (10:30)
[2023-12-12] MEDS ORDERED: IPRATROPIUM/ALBUTEROL 0.5-3(2.5)MG/3ML NEB HHN PRN (10:30)
[2023-12-12] MEDS ORDERED: ATORVASTATIN CALCIUM 20MG TABLET PO SCH (10:45)
[2023-12-12] MEDS ORDERED: ENOXAPARIN 30MG/0.3ML SYR SUBCUT SCH (11:00)
== END 2023-12-11 15:56 | disposition short-term general hospital (02) ==
LOC: ER 08:39 → EDBEDREQTM 12:58 → EDBEDREQ 12:58 → CANBEDREQ 14:07 → ER 15:56
DX: M25.551 Pain in right hip (principal); R29.6 Repeated falls; I25.2 Old myocardial infarction; I10 Essential (primary) hypertension; E11.9 Type 2 diabetes mellitus without complications; N28.9 Disorder of kidney and ureter, unspecified; Z79.4 Long term (current) use of insulin; Z79.899 Other long term (current) drug therapy; Z86.73 Personal history of transient ischemic attack (TIA), and cerebral infarction without residual deficits; Z98.890 Other specified postprocedural states; Z86.59 Personal history of other mental and behavioral disorders
CPT/HCPCS: 36415; 71045; 74176; 80048; 80076; 82550; 82962; 84484; 85025; 93005; 99291